=== PATIENT | female | born 1935 | race Caucasian/White ===

== ENCOUNTER 2016-10-16 07:42 | Day surgery (SDC) | payer MEDICARE, BC ==
--- NOTE | 2016-10-15 14:11 | HP ---
DATE OF ADMISSION: 10/15/2016 HISTORY OF PRESENT ILLNESS: This is the first orthopedic outpatient admission for surgery for this 81-year- old female who is being admitted with severe carpal tunnel syndrome of the right wrist. The patient has had failed treatment. Continued numbness, tingling, and pain. Nighttime pain that disturbs sleep. 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 The procedure has been outlined to the patient. She understands and has consented to it. PAST MEDICAL HISTORY: ALLERGIES: Keflex and amoxicillin, she notes she gets GI symptoms. CURRENT MEDICATIONS: Include Crestor, fenofibrate 54 mg, Flexeril, glipizide, hydrocodone 5/325, Lasix 40 mg, latanoprost ophthalmic solution, metformin 500 mg, Prilosec 20 mg, Toprol-XL 25 mg, Vasotec 20 mg. PAST MEDICAL HISTORY: The patient has a history of high blood pressure along with diabetes and increased cholesterol. PAST SURGICAL HISTORY: Positive. She has had previous surgeries with no anesthesia complications. Surgeries include hysterectomy, ovary surgery. The patient has a negative bleeding history, negative blood clot history. SOCIAL HISTORY: She is a nonsmoker and essentially a nondrinker. She states very rarely she might have a glass of wine. PHYSICAL EXAMINATION: GENERAL: Today reveals a well-developed and well-nourished 81-year-old female in mild distress. HEAD, EYES, EARS, NOSE, AND, THROAT: Normocephalic. NECK: Supple. CHEST: Clear. COR: Regular rate. ABDOMEN: Soft. : Intact. MUSCULOSKELETAL: Examination of right wrist reveals a severe Tinel's examination of the right median nerve. Severe thenar atrophy noted. Positive pain or carpal tunnel pressure. Nerve conduction evaluation shows severe carpal tunnel, compressive neuropathy of the median nerve with both motor and sensory function affected. PLAN: To be for the patient undergo right carpal tunnel release. The procedure has been outlined to her. She understands and has consented to that. MMODAL /[id number]
--- NOTE | 2016-10-16 07:08 | PCM.PREANE ---
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, with a stable report given per patient.) Gastrointestinal: No symptoms (History of GERD) Neurological: No Symptoms (History of cerebral hemorhage 2000, with bladder problems noted ever since.), Numbness ( tingling of right hand noted.), Tingling (a bit noted in left hand, primarily noted in left.) Other: Reports: Diabetes, Sinus Problem (allergic rhinitis/recent cold 2 weeks ago.) - Physical Assessment NPO Status Date: 10/15/16 NPO Status Time: 23:30 Pulse: 72 O2 Sat by Pulse Oximetry: 96 Respiratory Rate: 16 Blood Pressure: 139/77 Temperature: 36.9 C Height: 1.52 m Weight: 72.575 kg ASA Class: 2 Mental Status: Alert & Oriented x3 Airway Class: Mallampati = 2 Dentition: Reports: Partial, Missing Tooth/Teeth, Caries (poor dentition) Thyro-Mental Finger Breadths: 3 Mouth Opening Finger Breadths: 3 ROM/Head Extension: Full Lungs: Clear to auscultation, Normal respiratory effort Cardiovascular: Regular Rate, Regular Rhythm - Lab Values: hgb= 12.4 hct=38.3 platelets= 310,000 Na= 137 K= 4.0 Cl= 99 CO2=28 Bun=22 Cr=1.1 - Allergies Allergies/Adverse Reactions: Allergies Allergy/AdvReac Type Severity Reaction Status Date / Time amoxicillin Allergy Other Verified 10/15/16 15:40 cephalexin Allergy Other Verified 10/15/16 15:40 - Anesthesia Plan Pre-Op Medication Ordered: Beta Nancy Beta Nancy: Metoprolol Med Last Dose Date: 10/16/16 Med Last Dose Time: 06:30 - Acknowledgements Anesthesia Type Planned: ROJAS (and MAC) Pt an Appropriate Candidate for the Planned Anesthesia: Yes Alternatives and Risks of Anesthesia Discussed w Pt/Guardian: Yes Pt/Guardian Understands and Agrees with Anesthesia Plan: Yes PreAnesthesia Questionnaire HEENT History: Reports: Glaucoma, Macular degeneration Other HEENT History: glasses Cardiovascular History: Reports: Hypertension Genitourinary History: Reports: Urinary incontinence Neurological History: Reports: Cerebral aneurysms Endocrine/Metabolic History: Reports: Diabetes, type II - Infectious Disease History Infectious Disease History: Reports: Chicken pox, Measles, Scarlet fever - Past Surgical History HEENT Surgical History: Reports: Cataract surgery Other HEENT Surgeries/Procedures: bilateral cataract surgery GI Surgical History: Reports: Cholecystectomy Female Surgical History: Reports: Hysterectomy Endocrine Surgical History: Reports: None Other Musculoskeletal Surgeries/Procedures:: R sided rotator cuff repair - SUBSTANCE USE Smoking Status *Q: Never Smoker - HOME MEDS Home Medications: Home Meds Enalapril [Vasotec] 20 mg PO DAILY 08/07/16 [History] Furosemide [Furosemide] 60 mg PO DAILY 08/07/16 [History] Metoprolol Succinate [Toprol XL] 25 mg PO DAILY 08/07/16 [History] metFORMIN [Glucophage] 750 mg PO BID 08/07/16 [History] Fenofibrate [Fenofibrate] 54 mg PO DAILY 10/15/16 [History] Latanoprost [Latanoprost] 1 drop EYEBOTH BEDTIME 10/15/16 [History] Oxybutynin 5 mg PO DAILY 10/15/16 [History] Rosuvastatin [Crestor] 10 mg PO DAILY 10/15/16 [History] glipiZIDE [Glipizide] 10 mg PO DAILY 10/15/16 [History] - CURRENT (IN HOUSE) MEDS Current Meds: Current Medications Lactated Ringer's (Ringers, Lactated) 1,000 mls @ 125 mls/hr IV ASDIRECTED MAZIN Stop: 10/16/16 23:00 Lidocaine/Sodium Bicarbonate (Buffered Lidocaine 1% In Ns 8.4%) 0.25 ml IV ONETIME PRN PRN Reason: Prior to IV Start Stop: 10/16/16 18:00 Sodium Chloride (Saline Flush) 10 ml FLUSH ASDIRECTED PRN PRN Reason: Keep Vein Open Stop: 10/16/16 18:00
[~2016-10-16 07:42] MED LIST: Clindamycin Phosphate 900 MG in Sodium Chloride 0.9% 100 ML IV ONE; Dexamethasone 4 MG/ML 5 ML MDV ONE; Lactated Ringers 1,000 ML IV SCH; Lidocaine 0.5% 50 ML SDV ONE; Lidocaine 1% 6 ML ONE; Lidocaine 1%/Sod Bicarbonate in NS 8.4% 1 ML Syringe IV PRN; Ondansetron 4 MG/2 ML SDV ONE; Propofol 200 MG/20 ML SDV ONE; Sodium Bicarbonate 8.4% 50 MEQ/50 ML SDV ONE; Sodium Chloride 0.9% 10 ML Syringe FLUSH PRN; fentaNYL 100 MCG/2 ML SDV ONE
[2016-10-16] MEDS ORDERED: Ondansetron 4 MG/2 ML SDV IVPUSH PRN ×2 (09:04→09:26)
[2016-10-16] MEDS ORDERED: Acetaminophen/HYDROcodone 325-5 MG Tab PO PRN (09:04)
--- NOTE | 2016-10-16 09:59 | PCM48HPAN ---
Post Anesthesia Note - EVALUATION WITHIN 48HRS OF ANESTHETIC Vital Signs in Normal Range: Yes Patient Participated in Evaluation: Yes Respiratory Function Stable: Yes Airway Patent: Yes Cardiovascular Function Stable: Yes Hydration Status Stable: Yes Pain Control Satisfactory: Yes Nausea and Vomiting Control Satisfactory: Yes Mental Status Recovered: Yes - COMMENTS/OBSERVATIONS Free Text/Narrative:: Patient awake and expresses satisfaction with current care.
[2016-10-16 10:00] VITALS: BP 102/58
[2016-10-16] MEDS ORDERED: fentaNYL 100 MCG/2 ML SDV IVPUSH PRN (10:30)
[2016-10-16] MEDS ORDERED: HYDROmorphone 0.5 MG/0.5 ML Syringe IVPUSH PRN (10:30)
--- NOTE | 2016-10-16 13:20 | OR ---
DATE OF OPERATION: 10/16/2016 SURGEON: Mikhail De Guzman MD PREOPERATIVE DIAGNOSIS: Severe carpal tunnel syndrome, right wrist. POSTOPERATIVE DIAGNOSIS: Severe carpal tunnel syndrome, right wrist. ANESTHESIA: Sedation with Saad block. OPERATION PERFORMED: Right carpal tunnel ligament release and exploration. DESCRIPTION OF PROCEDURE: The patient was taken to the operating room in supine position. She was placed under a light sedation with Saad block anesthesia to the right upper extremity. After adequate anesthesia, the operation proceeded with prepping and draping of the right hand and arm by standard technique. After prepping and draping, the patient was then positioned for approach to the carpal tunnel from the palmar aspect on the right hand. Once the area of incision was determined, was approximately 1 cm distal to the flexion crease, incision itself was approximately a 1.5 cm and it was parallel to the radial aspect of the ring finger. Once the incision was made, blunt dissection was carried down to the palmar fascia. This was lightly incised exposing the carpal tunnel ligament. Instrumentation was then placed into the wound area to expose the ligament and then by very careful inspection by direct visualization, the ligament was incised into the carpal tunnel area extending proximally and distally taking care not to injure the median nerve. Incision was carried out to the ulnar aspect of the median nerve. Once the incision was made through the visualized approach, carpal ligaments, tendon ligaments, instruments were then inserted. The ligament was then released just proximal to the flexion crease until there was no fibrous pressure on the nerve itself. The distal portion of the ligament was then exposed and released down to the palmar fat pad. Once that was opened up, the carpal tunnel itself could be seen. The nerve was visualized and initially showed the hematoma ecchymosis formation from chronic pressure as a result of a tight carpal tunnel ligament. The vasa vasorum returned quite nicely after light pressure to the nerve itself. The area was then thoroughly irrigated. The operation proceeded with closure of the wound. A horizontal 4-0 Prolene mattress was used and then reinforced with 5-0 Prolene. Standard dressings and splint were applied. The patient tolerated this procedure well. She left the operating room in stable condition to room for recovery. ESTIMATED BLOOD LOSS: MMODAL /[id number]
== END 2016-10-16 10:32 | disposition home or self-care (01) ==
LOC: JD.SDS 07:42
PROVIDERS: ATTEND Specialist
DX: G56.01 Carpal tunnel syndrome, right upper limb (principal); I10 Essential (primary) hypertension; E11.9 Type 2 diabetes mellitus without complications; E78.00 Pure hypercholesterolemia, unspecified; Z90.710 Acquired absence of both cervix and uterus; Z98.890 Other specified postprocedural states; Z88.1 Allergy status to other antibiotic agents; Z88.8 Allergy status to other drugs, medicaments and biological substances; Z79.899 Other long term (current) drug therapy; Z90.49 Acquired absence of other specified parts of digestive tract; Z79.84 Long term (current) use of oral hypoglycemic drugs
CPT/HCPCS: 64721; 82962; J2405; J3010; J7030; J7120; 01810; J1100; J2704

== ENCOUNTER 2017-01-24 07:12 | Day surgery (SDC) | payer MEDICARE, BC ==
[~2017-01-24 07:12] MED LIST changes: -Clindamycin Phosphate 900 MG in Sodium Chloride 0.9% 100 ML IV ONE; -Dexamethasone 4 MG/ML 5 ML MDV ONE; -Lidocaine 0.5% 50 ML SDV ONE; -Lidocaine 1% 6 ML ONE; -Lidocaine 1%/Sod Bicarbonate in NS 8.4% 1 ML Syringe IV PRN; +Lidocaine 1%/Sod Bicarbonate in NS 8.4% 1 ML Syringe PRN; -Ondansetron 4 MG/2 ML SDV ONE; -Propofol 200 MG/20 ML SDV ONE; -Sodium Bicarbonate 8.4% 50 MEQ/50 ML SDV ONE; -fentaNYL 100 MCG/2 ML SDV ONE
[2017-01-24] MEDS ORDERED: Lidocaine 1% 30 ML SDV ONE (07:46)
[2017-01-24] MEDS ORDERED: Bupivacaine 0.25% 30 ML SDV ONE (07:46)
--- NOTE | 2017-01-24 08:50 | PCM.PREANE ---
Preanesthetic Assessment - Anesthesia/Transfusion/Family Hx Anesthesia History: Prior Anesthesia Without Reaction Transfusion History: Prior Transfusion Without Reaction Intubation History: Unknown - Review of Systems General: No Symptoms Pulmonary: No Symptoms (Former smoker quit 1985/LEONARDO- has a CPAP machine but does not use it.) Cardiovascular: No Symptoms (History of HTN) Gastrointestinal: No Symptoms (GERD) Neurological: No Symptoms (history of spinal stenosis, lumbar region, without neurogenic claudication), Headache, Syncope (hemorrhagic stroke 2000 with no deficits noted.), Tingling (right hand finger tingling noted at times.) Other: Reports: Diabetes (am blood sugar at [id number]) - Physical Assessment NPO Status Date: 01/23/17 NPO Status Time: 17:00 Pulse: 72 O2 Sat by Pulse Oximetry: 96 Respiratory Rate: 16 Blood Pressure: 146/66 Temperature: 36.2 C Vital Signs: Last Vital Signs Temp 36.2 C 01/24/17 07:20 Pulse 72 01/24/17 07:20 Resp 16 01/24/17 07:20 BP 146/66 H 01/24/17 07:20 Pulse Ox 96 01/24/17 07:20 Height: 1.52 m Weight: 72.121 kg ASA Class: 2 Mental Status: Alert & Oriented x3 Airway Class: Mallampati = 3 Dentition: Reports: Missing Tooth/Teeth Thyro-Mental Finger Breadths: 3 Mouth Opening Finger Breadths: 3 ROM/Head Extension: Full Lungs: Clear to Auscultation, Normal Respiratory Effort Cardiovascular: Regular Rate, Regular Rhythm, No Murmurs - Lab Values: Laboratory Last Values MRSA (PCR) Negative 01/11/17 09:55 Labs reviewed and noted and within acceptable ranges to proceed with scheduled surgery. GBD=[id number] CR= 22 - Imaging/EKG Impressions: EKG: sinus rhythm rate=64 CXR: no acute abnormalities - Allergies Allergies/Adverse Reactions: Allergies Allergy/AdvReac Type Severity Reaction Status Date / Time cephalexin Allergy Other Verified 01/23/17 15:48 Penicillins Allergy gi upset Verified 01/23/17 15:49 - Anesthesia Plan Pre-Op Medication Ordered: Beta Nancy Beta Nancy: Metoprolol Med Last Dose Date: 01/24/17 Med Last Dose Time: 06:00 - Acknowledgements Anesthesia Type Planned: MAC (LOCAL/MAC) Pt an Appropriate Candidate for the Planned Anesthesia: Yes Alternatives and Risks of Anesthesia Discussed w Pt/Guardian: Yes Pt/Guardian Understands and Agrees with Anesthesia Plan: Yes PreAnesthesia Questionnaire HEENT History: Reports: Glaucoma, Macular Degeneration Other HEENT History: glasses Cardiovascular History: Reports: High Cholesterol, Hypertension Respiratory History: Reports: Sleep Apnea Gastrointestinal History: Reports: GERD, Other (See Below) Other Gastrointestinal History: anal/rectal pain Genitourinary History: Reports: Urinary Incontinence, Other (See Below) Other Genitourinary History: bladder irritablilty 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 Musculoskeletal History: Reports: Osteoarthritis, Other (See Below) Other Musculoskeletal History: spinal stenosis, sacroilliac joint pain Neurological History: Reports: Migraines Psychiatric History: Reports: None Endocrine/Metabolic History: Reports: Diabetes, Type II, Hypothyroidism Hematologic History: Reports: Anemia, B12 Deficiency Immunologic History: Reports: None Oncologic (Cancer) History: Reports: None Dermatologic History: Reports: None - Infectious Disease History Infectious Disease History: Reports: Chicken Pox, Measles, Scarlet Fever - Past Surgical History Head Surgeries/Procedures: Reports: None HEENT Surgical History: Reports: Cataract Surgery Other HEENT Surgeries/Procedures: bilateral cataract surgery GI Surgical History: Reports: Cholecystectomy Female Surgical History: Reports: Hysterectomy Endocrine Surgical History: Reports: None Other Musculoskeletal Surgeries/Procedures:: R sided rotator cuff repair, bilateral hip replacements, closed tibia fracture Dermatological Surgical History: Reports: None - SUBSTANCE USE Smoking Status *Q: Former Smoker Recreational Drug Use History: No - HOME MEDS Home Medications: Home Meds Enalapril [Vasotec] 20 mg PO DAILY 08/07/16 [History] Furosemide [Furosemide] 60 mg PO DAILY 08/07/16 [History] Metoprolol Succinate [Toprol XL] 25 mg PO DAILY 08/07/16 [History] metFORMIN [Glucophage] 750 mg PO BID 08/07/16 [History] Fenofibrate [Fenofibrate] 54 mg PO DAILY 10/15/16 [History] Oxybutynin 5 mg PO DAILY 10/15/16 [History] Rosuvastatin [Crestor] 10 mg PO DAILY 10/15/16 [History] glipiZIDE [Glipizide] 10 mg PO DAILY 10/15/16 [History] Aspirin 81 mg PO DAILY 01/23/17 [History] Cyclobenzaprine [Flexeril] 10 mg PO TID PRN 01/23/17 [History] Hydrocodone/Acetaminophen [[place] 10-325 Tablet] 1 tab PO Q6H PRN 01/23/17 [ History] Omeprazole Magnesium [Prilosec Otc] 20 mg PO DAILY 01/23/17 [History] - CURRENT (IN HOUSE) MEDS Current Meds: Current Medications Lactated Ringer's (Ringers, Lactated) 1,000 mls @ 125 mls/hr IV ASDIRECTED MAZIN Stop: 01/24/17 23:00 Last Admin: 01/24/17 07:45 Dose: 125 mls/hr Lidocaine/Sodium Bicarbonate (Buffered Lidocaine 1% In Ns 8.4%) 0.25 ml .XX ONETIME PRN PRN Reason: Prior to IV Start Stop: 01/24/17 18:00 Last Admin: 01/24/17 07:44 Dose: 0.25 ml Sodium Chloride (Saline Flush) 10 ml FLUSH ASDIRECTED PRN PRN Reason: Keep Vein Open Stop: 01/24/17 18:00 Discontinued Medications Bupivacaine HCl (Marcaine 0.25%) Confirm Administered Dose 30 ml .ROUTE .STK- MED ONE Stop: 01/24/17 07:47 Lidocaine HCl (Xylocaine-Mpf 1%) Confirm Administered Dose 30 ml .ROUTE .STK- MED ONE Stop: 01/24/17 07:47
[2017-01-24] MEDS ORDERED: Alfentanil 500 MCG/ML 2ML Amp ONE (09:11)
[2017-01-24] MEDS ORDERED: Propofol 200 MG/20 ML SDV ONE (09:32)
[2017-01-24] MEDS ORDERED: ceFAZolin 1 GM Vial ONE (10:09)
--- NOTE | 2017-01-24 10:25 | PCM48HPAN ---
Post Anesthesia Note - EVALUATION WITHIN 48HRS OF ANESTHETIC Vital Signs in Normal Range: Yes Patient Participated in Evaluation: Yes Respiratory Function Stable: Yes Airway Patent: Yes Cardiovascular Function Stable: Yes Hydration Status Stable: Yes Pain Control Satisfactory: Yes Nausea and Vomiting Control Satisfactory: Yes Mental Status Recovered: Yes
[2017-01-24 11:19] VITALS: BP 149/76
--- NOTE | 2017-01-24 22:32 | PCM.OPNOTE ---
- General Post-Op/Procedure Note Date of Surgery/Procedure: 01/24/17 Operative Procedure(s): left carpal tunnel release Pre Op Diagnosis: left median nerve compression neuropathy Post-Op Diagnosis: Same Anesthesia Technique: Local, MAC Primary Surgeon: Vito Erickson Anesthesia Provider: Hank Cody EBL in mLs: 5 Complications: None Condition: Good
--- NOTE | 2017-01-24 23:03 | OR ---
DATE OF OPERATION: 01/24/2017 SURGEON: Vito Erickson MD OPERATION PERFORMED: Left carpal tunnel release. PREOPERATIVE DIAGNOSIS: Left median nerve compression neuropathy. POSTOPERATIVE DIAGNOSIS: Left median nerve compression neuropathy. ANESTHESIA: Local MAC. ANESTHESIA PROVIDER: Hank Cody MD. ESTIMATED BLOOD LOSS: Less than 5 mL. COMPLICATIONS: None. CONDITION: Stable. DESCRIPTION OF PROCEDURE: The patient was identified in the preop holding area. Proper site was marked and identified by the surgeon. The patient was taken back to the OR after adequate anesthesia the patient's left upper extremity sterilely prepped and draped in usual sterile fashion. OR time-out was performed. The patient received 2 g of IV Ancef. At this time, left upper extremity had an Esmarch placed on the forearm as a tourniquet. 1% lidocaine without epinephrine and 0.25% Marcaine without epinephrine were then used for anesthetization of palmar cutaneous branch of the median nerve and incisional area using Lopez cardinal line and ulnar border of fourth digit. At this time, incision was made. Blunt dissection was taken down to the palmar cutaneous fascia. Palmar cutaneous fascia was then incised with [place] blade. Transverse carpal ligament was then identified. Small rent was made in the transverse carpal ligament. A [place] elevator was placed below the transverse carpal ligament that was released all the way distally to make sure to stop just short of palmar fat. At this time, it was found to be released all the way distally. Attention was turned proximally with use of tenotomy scissors. Forearm fascia and the transverse carpal ligament were resected proximally making sure to keep the tips ulnar to protect the palmar cutaneous branch of the median nerve. At this time, it was found to be adequately released both proximally and distally. Adequate saline was irrigated through the wound. 4-0 nylon horizontal mattress suture was used for closure of the skin. The patient tolerated the procedure well and sent to PACU in stable condition. MMODAL /[id number]
== END 2017-01-24 11:18 | disposition home or self-care (01) ==
LOC: JD.SDS 07:12
PROVIDERS: ATTEND Orthopaedic Surgery
PROC: 01N50ZZ Release Median Nerve, Open Approach (ICD-10-PCS; principal; 2017-01-24)
DX: G56.02 Carpal tunnel syndrome, left upper limb (principal); I10 Essential (primary) hypertension; E11.69 Type 2 diabetes mellitus with other specified complication; R80.9 Proteinuria, unspecified; K21.9 Gastro-esophageal reflux disease without esophagitis; E78.2 Mixed hyperlipidemia; E55.9 Vitamin D deficiency, unspecified; M48.06 Spinal stenosis, lumbar region; M19.90 Unspecified osteoarthritis, unspecified site; D51.3 Other dietary vitamin B12 deficiency anemia; G47.33 Obstructive sleep apnea (adult) (pediatric); Z87.891 Personal history of nicotine dependence; Z79.82 Long term (current) use of aspirin; Z79.84 Long term (current) use of oral hypoglycemic drugs; Z79.899 Other long term (current) drug therapy; Z88.0 Allergy status to penicillin; Z88.1 Allergy status to other antibiotic agents; Z96.643 Presence of artificial hip joint, bilateral; Z98.41 Cataract extraction status, right eye; Z98.42 Cataract extraction status, left eye; Z90.49 Acquired absence of other specified parts of digestive tract; Z90.710 Acquired absence of both cervix and uterus; Z98.890 Other specified postprocedural states; Z99.89 Dependence on other enabling machines and devices
CPT/HCPCS: 64721; 87641; J0690; J7120; 01830; J2704; J3490

== ENCOUNTER 2017-08-16 13:56 | Emergency (ER) | payer MEDICARE, BC ==
[2017-08-16 14:33] VITALS: BP 128/52
[2017-08-16] MEDS ORDERED: Sodium Chloride 0.9% 10 ML Syringe FLUSH PRN (14:59)
--- NOTE | 2017-08-16 15:17 | CT ---
Head CT Technique: Multiple axial sections through the brain were obtained. Intravenous contrast was not utilized. Comparison: Previous MRI brain dated 08/05/14. Findings: Ventricles along with basal cisterns and sulci over the convexities are moderately prominent. Mild areas of diminished density are noted within the basal ganglia which are compatible with old lacunar infarcts. Minimal decreased density is identified within the periventricular white matter compatible with small vessel ischemic demyelination change. No other abnormal parenchymal densities are seen. No evidence of intracranial hemorrhage. No midline shift or mass effect is seen. Bone window settings were reviewed which shows no discrete calvarial abnormality. Visualized sinuses show no acute sinus findings. Impression: 1. Senescent change as noted above. 2. Nothing acute is appreciated on noncontrast head CT exam. Diagnostic code #2
[2017-08-16] MEDS ORDERED: Ketorolac 30 MG/ML SDV IVPUSH ONE (15:45)
--- NOTE | 2017-08-16 15:59 | CR ---
Chest: Portable view of the chest was obtained. Comparison: No prior chest x-ray. Heart size and mediastinum are normal. Minimal atelectasis within the lateral left costophrenic angle is seen. Lungs otherwise are clear. Fairly prominent degenerative change is noted within both shoulders. Impression: 1. Incidental findings. Nothing acute is seen on portable chest x-ray. Diagnostic code #2
--- NOTE | 2017-08-16 17:02 | EDM.PDOC ---
ED HPI GENERAL MEDICAL PROBLEM - General Chief Complaint: Headache Stated Complaint: HEADACHE Time Seen by Provider: 08/16/17 14:52 Source of Information: Reports: Patient History Limitations: Reports: No Limitations - History of Present Illness INITIAL COMMENTS - FREE TEXT/NARRATIVE: The patient presents with a headache to the top of her head. This started abut 2 weeks ago. It comes and goes. She still has one now. She has no head injury. She does have a history of headaches but this one feels worse. It feels like when she had a head bleed about 12 years ago. She has no fever, chills, vision troubles, numbness or weakness. She did have some chest pain a few days ago. It is gone now. She has no abdominal pain, nausea or vomiting. Onset: Gradual Duration: Week(s): (2) Location: Reports: Head Quality: Reports: Ache Severity: Moderate Improves with: Reports: None Worsens with: Reports: None Associated Symptoms: Reports: Chest Pain, Headaches. Denies: Fever/Chills, Nausea/Vomiting, Shortness of Breath Headache Pain Score (Numeric/FACES): 10 - Related Data Allergies Allergy/AdvReac Type Severity Reaction Status Date / Time cephalexin Allergy Other Verified 08/16/17 14:33 Penicillins AdvReac gi upset Verified 08/16/17 14:33 Home Meds: Home Meds Enalapril [Vasotec] 20 mg PO DAILY 08/07/16 [History] Furosemide 60 mg PO DAILY 08/07/16 [History] Metoprolol Succinate [Toprol XL] 25 mg PO DAILY 08/07/16 [History] metFORMIN [Glucophage] 750 mg PO BID 08/07/16 [History] Fenofibrate 54 mg PO DAILY 10/15/16 [History] Oxybutynin 5 mg PO DAILY 10/15/16 [History] glipiZIDE [Glipizide] 5 mg PO BID 10/15/16 [History] Aspirin 81 mg PO DAILY 01/23/17 [History] Cyclobenzaprine [Flexeril] 10 mg PO TID PRN 01/23/17 [History] Hydrocodone/Acetaminophen [[place] 10-325 Tablet] 1 tab PO Q6H PRN 01/23/17 [ History] Omeprazole Magnesium [Prilosec Otc] 20 mg PO DAILY 01/23/17 [History] Hydrocodone/Acetaminophen [Hydrocodon-Acetaminophen 5-325] 1 - 2 each PO Q6HR PRN #20 tablet 08/16/17 [Rx] Simvastatin [Zocor] 80 mg PO DAILY 08/16/17 [History] Past Medical History HEENT History: Reports: Glaucoma, Macular Degeneration Other HEENT History: glasses Cardiovascular History: Reports: High Cholesterol, Hypertension Respiratory History: Reports: Sleep Apnea Gastrointestinal History: Reports: GERD, Other (See Below) Other Gastrointestinal History: anal/rectal pain Genitourinary History: Reports: Urinary Incontinence, Other (See Below) Other Genitourinary History: bladder irritablilty INDUSTRIAL RELATIONS REPRESENTATIVE History: Reports: None Musculoskeletal History: Reports: Osteoarthritis, Other (See Below) Other Musculoskeletal History: spinal stenosis, sacroilliac joint pain Neurological History: Reports: Migraines Psychiatric History: Reports: None Endocrine/Metabolic History: Reports: Diabetes, Type II, Hypothyroidism Hematologic History: Reports: Anemia, B12 Deficiency Immunologic History: Reports: None Oncologic (Cancer) History: Reports: None Dermatologic History: Reports: None - Infectious Disease History Infectious Disease History: Reports: Chicken Pox, Measles, Scarlet Fever - Past Surgical History Head Surgeries/Procedures: Reports: None HEENT Surgical History: Reports: Cataract Surgery Other HEENT Surgeries/Procedures: bilateral cataract surgery GI Surgical History: Reports: Cholecystectomy Female Surgical History: Reports: Hysterectomy Endocrine Surgical History: Reports: None Other Musculoskeletal Surgeries/Procedures:: R sided rotator cuff repair, bilateral hip replacements, closed tibia fracture Dermatological Surgical History: Reports: None Social & Family History - Tobacco Use Smoking Status *Q: Never Smoker Month Tobacco Last Used: 1993 Second Hand Smoke Exposure: No - Caffeine Use Caffeine Use: Reports: Coffee - Recreational Drug Use Recreational Drug Use: No ED ROS GENERAL - Review of Systems Review Of Systems: See Below Constitutional: Reports: No Symptoms HEENT: Reports: No Symptoms Respiratory: Reports: No Symptoms Cardiovascular: Reports: Chest Pain Endocrine: Reports: No Symptoms GI/Abdominal: Reports: No Symptoms : Reports: No Symptoms Musculoskeletal: Reports: No Symptoms Skin: Reports: No Symptoms Neurological: Reports: Headache - Physical Exam Exam: See Below Exam Limited By: No Limitations General Appearance: Alert, No Apparent Distress Ears: Normal External Exam Nose: Normal Inspection Head Exam: Atraumatic, Normocephalic Neck: Normal Inspection Respiratory/Chest: No Respiratory Distress, Lungs Clear, Normal Breath Sounds Cardiovascular: Regular Rate, Rhythm, No Edema, No Murmur GI/Abdominal: Soft, Non-Tender, No Organomegaly, No Mass Neuro Exam (Abbreviated): Alert, Oriented, No Motor/Sensory Deficits EKG INTERPRETATION EKG Date: 08/16/17 Time: 15:42 Rhythm: NSR Rate (Beats/Min): 74 [place]: Normal P-Wave: Present QRS: Normal ST-T: Normal QT: Normal Course - Vital Signs Last Recorded V/S: Last Vital Signs Temp 98.4 F 08/16/17 14:28 Pulse 78 08/16/17 14:28 Resp 13 08/16/17 14:28 BP 128/52 L 08/16/17 14:28 Pulse Ox 97 08/16/17 14:28 - Orders/Labs/Meds Orders: Active Orders 24 hr Category Date Time Status Cardiac Monitoring [RC] . DIRECTED Care 08/16/17 14:59 Active EKG Documentation Completion [RC] STAT Care 08/16/17 14:59 Active Peripheral IV Care [RC] . DIRECTED Care 08/16/17 14:59 Active Sodium Chloride 0.9% [Saline Flush] Med 08/16/17 14:59 Active 10 ml FLUSH ASDIRECTED PRN Peripheral IV Insertion Adult [OM.PC] Stat Oth 08/16/17 14:59 Ordered Medication Orders Sodium Chloride (Saline Flush) 10 ml FLUSH ASDIRECTED PRN PRN Reason: Keep Vein Open Last Admin: 08/16/17 16:10 Dose: 10 ml Labs: Laboratory Tests 08/16/17 08/16/17 Range/Units 15:10 15:10 WBC 7.38 (3.98-10.04) K/mm3 RBC 4.01 (3.98-5.22) M/mm3 Hgb 11.1 L (11.2-15.7) gm/L Hct 34.9 (34.1-44.9) % MCV 87.0 (79.4-94.8) fl MCH 27.7 (25.6-32.2) pg MCHC 31.8 L (32.2-35.5) g/dl RDW Std Deviation 43.7 (36.4-46.3) fL Plt Count 307 (182-369) K/mm3 MPV 10.4 (9.4-12.3) fl Neut % (Auto) 49.2 (34.0-71.1) % Lymph % (Auto) 39.3 (19.3-51.7) % [place] % (Auto) 8.9 (4.7-12.5) % Eos % (Auto) 2.2 (0.7-5.8) Baso % (Auto) 0.1 (0.1-1.2) % Neut # (Auto) 3.63 (1.56-6.13) K/mm3 Lymph # (Auto) 2.90 (1.18-3.74) K/mm3 [place] # (Auto) 0.66 H (0.24-0.36) K/mm3 Eos # (Auto) 0.16 (0.04-0.36) K/mm3 Baso # (Auto) 0.01 (0.01-0.08) K/mm3 Sodium 141 (136-145) mEq/L Potassium 3.6 (3.5-5.1) mEq/L Chloride 103 (98-107) mEq/L Carbon Dioxide 31 (21-32) mEq/L Anion Gap 10.6 (5-15) BUN 27 H (7-18) mg/dL Creatinine 1.4 H (0.55-1.02) mg/dL Est Cr Clr Drug Dosing 23.40 mL/min Estimated GFR (MDRD) 36 (>60) mL/min BUN/Creatinine Ratio 19.3 H (14-18) Glucose 152 H (83-115) mg/dL Calcium 9.3 (8.5-10.1) mg/dL Total Bilirubin 0.3 (0.2-1.0) mg/dL AST 11 L (15-37) U/L ALT 16 (14-59) U/L Alkaline Phosphatase 49 (46-116) U/L Troponin I < 0.017 (0.00-0.056) ng/mL Total Protein 7.2 (6.4-8.2) g/dl Albumin 3.6 (3.4-5.0) g/dl Globulin 3.6 gm/dL Albumin/Globulin Ratio 1.0 (1-2) Meds: Medications Generic Name Dose Route Start Last Admin Trade Name Freq PRN Reason Stop Dose Admin Sodium Chloride 10 ml 08/16/17 14:59 08/16/17 16:10 Saline Flush FLUSH 10 ml ASDIRECTED PRN Administration Keep Vein Open Discontinued Medications Generic Name Dose Route Start Last Admin Trade Name Perla PRN Reason Stop Dose Admin Ketorolac Tromethamine 30 mg 08/16/17 15:45 08/16/17 16:05 Toradol IVPUSH 08/16/17 15:46 30 mg ONETIME ONE Administration - Re-Assessments/Exams Free Text/Narrative Re-Assessment/Exam: 08/16/17 19:44 I ordered an IV saline lock, CT of her head, EKG, CXR, and labs. Her CT looks good. Her EKG shows a NSR with no acute changes. Her labs look good. She had a normal troponin. I ordered some toradol 30mg IV. I have ordered an outpatient MRI and MRA of her brain. Departure - Departure Time of Disposition: 17:00 Disposition: Home, Self-Care 01 Condition: Good Clinical Impression: Headache Qualifiers: Headache type: unspecified Headache chronicity pattern: acute headache Intractability: not intractable Qualified Code(s): R51 - Headache - Discharge Information Prescriptions: Hydrocodone/Acetaminophen [Hydrocodon-Acetaminophen 5-325] 1 - 2 each PO Q6HR PRN #20 tablet PRN Reason: Pain Instructions: General Headache Without Cause Referrals: Garfield Butler MD [Primary Care Provider] - 1 Week Forms: ED Department Discharge Additional Instructions: Take the hydrocodone 1 to 2 pills every 6 hours as needed for pain. I have ordered an MRI of your brain. They will call you with a time. Please return if you are worse. - My Orders Last 24 Hours: My Active Orders 08/16/17 14:59 Cardiac Monitoring [RC] . DIRECTED EKG Documentation Completion [RC] STAT Peripheral IV Care [RC] . DIRECTED Sodium Chloride 0.9% [Saline Flush] 10 ml FLUSH ASDIRECTED PRN Peripheral IV Insertion Adult [OM.PC] Stat - Assessment/Plan Last 24 Hours: My Active Orders 08/16/17 14:59 Cardiac Monitoring [RC] . DIRECTED EKG Documentation Completion [RC] STAT Peripheral IV Care [RC] . DIRECTED Sodium Chloride 0.9% [Saline Flush] 10 ml FLUSH ASDIRECTED PRN Peripheral IV Insertion Adult [OM.PC] Stat
== END 2017-08-16 17:15 | disposition home or self-care (01) ==
LOC: JD.ED 13:56
DX: R51 Headache (principal); I10 Essential (primary) hypertension; E78.00 Pure hypercholesterolemia, unspecified; K21.9 Gastro-esophageal reflux disease without esophagitis; E11.9 Type 2 diabetes mellitus without complications; E03.9 Hypothyroidism, unspecified; Z79.84 Long term (current) use of oral hypoglycemic drugs; Z79.82 Long term (current) use of aspirin; Z79.899 Other long term (current) drug therapy; Z88.1 Allergy status to other antibiotic agents; Z88.0 Allergy status to penicillin
CPT/HCPCS: 36415; 70450; 71045; 80053; 84484; 85025; 93005; 96374; 99285; J1885; J7050; 93010; 99284-25

== ENCOUNTER 2019-04-27 07:19 | Emergency (ER) | payer MEDICARE, BC ==
[2019-04-27] MEDS ORDERED: Sodium Chloride 0.9% 10 ML Syringe FLUSH PRN (07:23)
--- NOTE | 2019-04-27 07:46 | EDM.PDOC ---
ED HPI GENERAL MEDICAL PROBLEM - General Chief Complaint: Neuro Symptoms/Deficits Stated Complaint: [facility] Time Seen by Provider: 04/27/19 07:23 Source of Information: Reports: EMS, Family History Limitations: Reports: Altered Mental Status - History of Present Illness INITIAL COMMENTS - FREE TEXT/NARRATIVE: The patient presents by [facility] for a possible stroke. Her last time known well was early this morning at 1am when she went to bed. She was talking at that time and moving. This morning just prior to arrival her says she will not talk and she would not get out of bed. She is alert but will not talk or follow commands. Her says for about 3 weeks she has been having back pain. She saw Dr Butler and Dr Mcduffie and another doctor. She is scheduled to have a colonoscopy today with Dr Matamoros. She was put on baclofen on for her back. Her says since she has not been acting right. She has been weak and a little confused and off balance at times. She has no temp here. She has no cough, congestion, runny nose, vomiting or diarrhea. That is according to her . She had a head bleed 12 years ago. She had a full physical done last week. Onset: Gradual Duration: Hour(s): (last time known well was 1am) Severity: Moderate Improves with: Reports: None Worsens with: Reports: None Associated Symptoms: Reports: No Other Symptoms - Related Data Allergies Allergy/AdvReac Type Severity Reaction Status Date / Time cephalexin Allergy Other Verified 04/27/19 08:27 Penicillins AdvReac gi upset Verified 04/27/19 08:27 Home Meds: Home Meds Enalapril [Vasotec] 20 mg PO DAILY 08/07/16 [History] Furosemide 60 mg PO DAILY 08/07/16 [History] Metoprolol Succinate [Toprol XL] 25 mg PO DAILY 08/07/16 [History] metFORMIN [Glucophage] 500 mg PO BID 08/07/16 [History] Fenofibrate 54 mg PO DAILY 10/15/16 [History] Oxybutynin 5 mg PO DAILY 10/15/16 [History] glipiZIDE [Glipizide] 10 mg PO ACBREAKFAST 10/15/16 [History] Aspirin 81 mg PO DAILY 01/23/17 [History] Omeprazole Magnesium [Prilosec Otc] 20 mg PO DAILY 01/23/17 [History] Latanoprost/Pf [Latanoprost 0.005% Eye Drop] 1 drop EYEBOTH BEDTIME 04/27/19 [ History] Multivit-Min/FA/Lycopene/Lut [Certavite Sr-Antioxidant Tab] 1 tab PO DAILY 04/27 [History] Polyethylene Glycol [Polyox Wsr-301] 1 packet PO DAILY 04/27/19 [History] Rosuvastatin Calcium 20 mg PO DAILY 04/27/19 [History] Past Medical History HEENT History: Reports: Glaucoma, Macular Degeneration Other HEENT History: glasses Cardiovascular History: Reports: High Cholesterol, Hypertension Respiratory History: Reports: Sleep Apnea Gastrointestinal History: Reports: GERD, Other (See Below) Other Gastrointestinal History: anal/rectal pain Genitourinary History: Reports: Urinary Incontinence, Other (See Below) Other Genitourinary History: bladder irritablilty 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 Musculoskeletal History: Reports: Osteoarthritis, Other (See Below) Other Musculoskeletal History: spinal stenosis, sacroilliac joint pain Neurological History: Reports: Migraines Psychiatric History: Reports: None Endocrine/Metabolic History: Reports: Diabetes, Type II, Hypothyroidism Hematologic History: Reports: Anemia, B12 Deficiency Immunologic History: Reports: None Oncologic (Cancer) History: Reports: None Dermatologic History: Reports: None - Infectious Disease History Infectious Disease History: Reports: Chicken Pox, Measles, Scarlet Fever - Past Surgical History Head Surgeries/Procedures: Reports: None HEENT Surgical History: Reports: Cataract Surgery Other HEENT Surgeries/Procedures: bilateral cataract surgery GI Surgical History: Reports: Cholecystectomy Female Surgical History: Reports: Hysterectomy Endocrine Surgical History: Reports: None Other Musculoskeletal Surgeries/Procedures:: R sided rotator cuff repair, bilateral hip replacements, closed tibia fracture Dermatological Surgical History: Reports: None Social & Family History - Caffeine Use Caffeine Use: Reports: Coffee ED ROS GENERAL - Review of Systems Review Of Systems: Unable To Obtain ED EXAM, NEURO - Physical Exam Exam: See Below Exam Limited By: Altered Mental Status General Appearance: Alert, Other (Will not talk. She does follow some commands) Ears: Normal External Exam Nose: Normal Inspection Head Exam: Atraumatic, Normocephalic Neck: Normal Inspection Respiratory/Chest: No Respiratory Distress, Lungs Clear, Normal Breath Sounds Cardiovascular: Regular Rate, Rhythm, No Edema, No Murmur GI/Abdominal: Soft, Non-Tender, No Organomegaly, No Mass Neurological: Alert, Other (She will follow some commands. She lifted her arms up on command and pushed with her feet. She had left arm and leg weakness. There was no sided weakness.) EKG INTERPRETATION EKG Date: 04/27/19 Time: 07:39 Rhythm: NSR Rate (Beats/Min): 79 [place]: Normal P-Wave: Present QRS: Normal ST-T: Normal QT: Normal Course - Vital Signs Last Recorded V/S: Last Vital Signs Temp 96.7 F 04/27/19 07:20 Pulse 80 04/27/19 07:20 Resp 20 04/27/19 07:20 BP 160/121 H 04/27/19 07:20 Pulse Ox 99 04/27/19 07:20 - Orders/Labs/Meds Orders: Active Orders 24 hr Category Date Time Status Cardiac Monitoring [RC] . DIRECTED Care 04/27/19 07:23 Active EKG Documentation Completion [RC] STAT Care 04/27/19 07:24 Active Insert [place]o Catheter [Insert Urinary Catheter] [OM.PC] Care 04/27/19 10:15 Ordered Q24H Oxygen Therapy [RC] PRN Care 04/27/19 07:23 Active Peripheral IV Care [RC] . DIRECTED Care 04/27/19 07:23 Active Urinary Catheter Assessment [RC] ASDIRECTED Care 04/27/19 10:15 Active UA W/MICROSCOPIC [URIN] Stat Lab 04/27/19 10:15 Ordered Sodium Chloride 0.9% [Saline Flush] Med 04/27/19 07:23 Active 10 ml FLUSH ASDIRECTED PRN Peripheral IV Insertion Adult [OM.PC] Stat Oth 04/27/19 07:23 Ordered Medication Orders Sodium Chloride (Saline Flush) 10 ml FLUSH ASDIRECTED PRN PRN Reason: Keep Vein Open Last Admin: 04/27/19 07:28 Dose: 10 ml Labs: Laboratory Tests 04/27/19 04/27/19 04/27/19 Range/Units 07:23 07:45 07:45 WBC 8.32 (3.98-10.04) K/mm3 RBC 4.15 (3.98-5.22) M/mm3 Hgb 11.4 (11.2-15.7) gm/dl Hct 34.9 (34.1-44.9) % MCV 84.1 (79.4-94.8) fl MCH 27.5 (25.6-32.2) pg MCHC 32.7 (32.2-35.5) g/dl RDW Std Deviation 44.3 (36.4-46.3) fL Plt Count 334 (182-369) K/mm3 MPV 10.2 (9.4-12.3) fl Neut % (Auto) 61.0 (34.0-71.1) % Lymph % (Auto) 27.6 (19.3-51.7) % [place] % (Auto) 10.6 (4.7-12.5) % Eos % (Auto) 0.6 L (0.7-5.8) Baso % (Auto) 0.1 (0.1-1.2) % Neut # (Auto) 5.07 (1.56-6.13) K/mm3 Lymph # (Auto) 2.30 (1.18-3.74) K/mm3 [place] # (Auto) 0.88 H (0.24-0.36) K/mm3 Eos # (Auto) 0.05 (0.04-0.36) K/mm3 Baso # (Auto) 0.01 (0.01-0.08) K/mm3 Sodium 143 (136-145) mEq/L Potassium 3.5 (3.5-5.1) mEq/L Chloride 104 (98-107) mEq/L Carbon Dioxide 25 (21-32) mEq/L Anion Gap 17.5 H (5-15) BUN 41 H (7-18) mg/dL Creatinine 2.1 H (0.55-1.02) mg/dL Est Cr Clr Drug Dosing 18.14 mL/min Estimated GFR (MDRD) 23 (>60) mL/min BUN/Creatinine Ratio 19.5 H (14-18) Glucose 145 H (83-115) mg/dL POC Glucose 136 H (83-110) mg/dL Calcium 9.2 (8.5-10.1) mg/dL Magnesium 1.7 L (1.8-2.4) mg/dl Total Bilirubin 0.3 (0.2-1.0) mg/dL AST 33 (15-37) U/L ALT 25 (14-59) U/L Alkaline Phosphatase 73 (46-116) U/L Troponin I < 0.017 (0.00-0.056) ng/mL Total Protein 7.5 (6.4-8.2) g/dl Albumin 3.8 (3.4-5.0) g/dl Globulin 3.7 gm/dL Albumin/Globulin Ratio 1.0 (1-2) Meds: Medications Generic Name Dose Route Start Last Admin Trade Name Freq PRN Reason Stop Dose Admin Sodium Chloride 10 ml 04/27/19 07:23 04/27/19 07:28 Saline Flush FLUSH 10 ml ASDIRECTED PRN Administration Keep Vein Open Discontinued Medications Generic Name Dose Route Start Last Admin Trade Name Freq PRN Reason Stop Dose Admin Aspirin 324 mg 04/27/19 10:13 Aspirin PO 04/27/19 10:14 ONETIME ONE - Re-Assessments/Exams Free Text/Narrative Re-Assessment/Exam: 04/27/19 07:51 I ordered an IV saline lock, CT of her head, EKG, labs and UA. Her EKG shows a NSR with no acute changes. Her CT shows multiple small hypodensities at the basal ganglia consistent with remote lacunar infarctions. Bifrontal atrophy. There is an expected degree of age-related atrophy and chronic white matter ischemic changes. No acute intra-axial hemorrhage appreciated. 04/27/19 10:02 The MRI of her brain shows senescent change. Equivocal small area of abnormal diffusion within the cortex of the right posterior temporal region. This is difficult area to evaluate due to artifact. Small acute infarct is a possibility. No other acute diffusion abnormalities are seen. 04/27/19 10:07 Her CBC looks good. Her anion gap is elevated at 17.5. Her creatinine is elevated at 2.1. Her baseline in the past was 1.5. Her glucose was 145. Her troponin is negative. She can speak some words now. She is slurring her words and her words do not make sense in the context. She still has weakness to her left arm and leg. My nurse will redo a stroke scale on her. I feel she needs to go to [facility] [place]. I called there and talked with the neurologist Dr Nash and he wanted me to give aspirin and I will also talk with the hospitalist Dr Lundberg. 04/27/19 10:33 My nurse says her stroke scale has not changed. Departure - Departure Time of Disposition: 10:35 Disposition: DC/Tfer to Acute Hospital 02 Condition: Serious Clinical Impression: Renal insufficiency CVA (cerebral vascular accident) Qualifiers: CVA mechanism: unspecified Qualified Code(s): I63.9 - Cerebral infarction, unspecified - Discharge Information Referrals: Garfield Butler MD [Primary Care Provider] - Forms: ED Department Discharge - My Orders Last 24 Hours: My Active Orders 04/27/19 07:23 Cardiac Monitoring [RC] . DIRECTED Oxygen Therapy [RC] PRN Peripheral IV Care [RC] . DIRECTED Sodium Chloride 0.9% [Saline Flush] 10 ml FLUSH ASDIRECTED PRN Peripheral IV Insertion Adult [OM.PC] Stat 04/27/19 07:24 EKG Documentation Completion [RC] STAT 04/27/19 10:15 Insert Brito Catheter [Insert Urinary Catheter] [OM.PC] Q24H Urinary Catheter Assessment [RC] ASDIRECTED UA W/MICROSCOPIC [URIN] Stat - Assessment/Plan Last 24 Hours: My Active Orders 04/27/19 07:23 Cardiac Monitoring [RC] . DIRECTED Oxygen Therapy [RC] PRN Peripheral IV Care [RC] . DIRECTED Sodium Chloride 0.9% [Saline Flush] 10 ml FLUSH ASDIRECTED PRN Peripheral IV Insertion Adult [OM.PC] Stat 04/27/19 07:24 EKG Documentation Completion [RC] STAT 04/27/19 10:15 Insert Brito Catheter [Insert Urinary Catheter] [OM.PC] Q24H Urinary Catheter Assessment [RC] ASDIRECTED UA W/MICROSCOPIC [URIN] Stat
--- NOTE | 2019-04-27 08:40 | CT ---
Head CT Technique: Multiple axial sections through the brain were obtained. Intravenous contrast was not utilized. Comparison: Prior head CT study of 08/16/17. Findings: Ventricles along with basal cisterns and sulci over the convexities are moderately prominent. Several old lacunar infarcts are noted within the basal ganglia. Diminished density is noted within the periventricular white matter which is most likely due to small vessel ischemic demyelination change. No other abnormal parenchymal densities are seen. No evidence of intracranial hemorrhage. No midline shift or mass effect is seen. Atherosclerotic calcification is seen within the carotid siphon. Bone window settings were reviewed which showed visualized paranasal sinuses to be clear. Mastoid sinuses are clear. No acute calvarial abnormality is appreciated. Impression: 1. Senescent change as noted above. 2. Nothing acute is appreciated on noncontrast head CT exam. 3. No significant change is appreciated from prior head CT exam. Diagnostic code #2
--- NOTE | 2019-04-27 09:48 | MR ---
MRI brain Technique: T1 sagittal; T2, T2 FLAIR, T1 and diffusion axial; T1 and T2 gradient echo coronal; T2 gradient echo axial images were also obtained. Comparison: Prior head CT study performed earlier on the same day (7:25 AM). Findings: Normal signal void is seen within the major cerebral arteries within the skull base. Ventricles along with basal cisterns and sulci over the convexities are moderately prominent. Areas of increased signal are seen within the periventricular and subcortical white matter which is compatible with small vessel ischemic demyelination change. Questionable acute diffusion abnormality is seen next to some artifact within the posterior right temporal region. Difficult to exclude small posterior temporal lobe acute infarct. No other diffusion abnormalities are seen. Impression: 1. Senescent change. 2. Equivocal small area of abnormal diffusion within the cortex of the right posterior temporal region. This is a difficult area to evaluate due to artifact. Small acute infarct is a possibility. 3. No other acute diffusion abnormalities are seen. Diagnostic code #3
[2019-04-27] MEDS ORDERED: Aspirin 81 MG Tab.Chew PO ONE (10:13)
[2019-04-27 12:02] VITALS: BP 167/68; PULSE 90
== END 2019-04-27 10:57 ==
LOC: JD.ED 07:19 → SUPCPDRO 07:19 → JD.ED 10:57
DX: I63.9 Cerebral infarction, unspecified (principal); N28.9 Disorder of kidney and ureter, unspecified; I10 Essential (primary) hypertension; E78.00 Pure hypercholesterolemia, unspecified; K21.9 Gastro-esophageal reflux disease without esophagitis; E11.9 Type 2 diabetes mellitus without complications; Z88.1 Allergy status to other antibiotic agents; Z88.0 Allergy status to penicillin; Z79.82 Long term (current) use of aspirin; Z79.84 Long term (current) use of oral hypoglycemic drugs; Z79.899 Other long term (current) drug therapy
CPT/HCPCS: 36415; 51701; 70450; 70551; 80053; 81001; 82962; 83735; 84484; 85025; 93005; 99285; A9270; 93010

== ENCOUNTER 2019-09-23 06:49 | Day surgery (SDC) | payer MEDICARE, BC ==
[~2019-09-23 06:49] MED LIST changes: +Lidocaine 1%/Sod Bicarbonate in NS 8.4% 1 ML Syringe IDERM PRN; -Lidocaine 1%/Sod Bicarbonate in NS 8.4% 1 ML Syringe PRN
[2019-09-23] MEDS ORDERED: Lidocaine 1%/Sod Bicarbonate in NS 8.4% 1 ML Syringe IDERM PRN (07:00)
[2019-09-23] MEDS ORDERED: Sodium Chloride 0.9% 10 ML Syringe FLUSH PRN (07:00)
[2019-09-23] MEDS ORDERED: Lactated Ringers 1,000 ML IV SCH (07:00)
[2019-09-23] MEDS ORDERED: Propofol 200 MG/20 ML SDV ONE (07:20)
[2019-09-23] MEDS ORDERED: Lidocaine 1% 2 ML ONE (07:21)
--- NOTE | 2019-09-23 07:48 | PCM.PREANE ---
Preanesthetic Assessment - Anesthesia/Transfusion/Family Hx Anesthesia History: Prior Anesthesia Without Reaction Family History of Anesthesia Reaction: No Transfusion History: Prior Transfusion Without Reaction Intubation History: Unknown - Review of Systems General: No Symptoms Pulmonary: No Symptoms Cardiovascular: No Symptoms Gastrointestinal: No Symptoms Neurological: No Symptoms Other: Reports: Diabetes - Physical Assessment NPO Status Date: 09/22/19 NPO Status Time: 21:00 Vital Signs: Last Vital Signs Temp 98.9 F 09/23/19 07:00 Pulse 80 09/23/19 07:00 Resp 16 09/23/19 07:00 BP 142/64 H 09/23/19 07:00 Pulse Ox 96 09/23/19 07:00 ASA Class: 3 Mental Status: Alert & Oriented x3 Airway Class: Mallampati = 2 Dentition: Reports: Dentures, Broken Tooth/Teeth, Missing Tooth/Teeth Thyro-Mental Finger Breadths: 3 Mouth Opening Finger Breadths: 3 Lungs: Clear to Auscultation, Normal Respiratory Effort Cardiovascular: Regular Rate - Allergies Allergies/Adverse Reactions: Allergies Allergy/AdvReac Type Severity Reaction Status Date / Time cephalexin Allergy Other Verified 04/27/19 08:27 Penicillins AdvReac gi upset Verified 04/27/19 08:27 - Anesthesia Plan Beta Nancy: Metoprolol Med Last Dose Date: 09/23/19 Med Last Dose Time: 06:00 - Acknowledgements Anesthesia Type Planned: MAC Pt an Appropriate Candidate for the Planned Anesthesia: Yes Alternatives and Risks of Anesthesia Discussed w Pt/Guardian: Yes Pt/Guardian Understands and Agrees with Anesthesia Plan: Yes PreAnesthesia Questionnaire HEENT History: Reports: Glaucoma, Macular Degeneration Other HEENT History: glasses Cardiovascular History: Reports: Heart Murmur, Hypertension Respiratory History: Reports: Sleep Apnea Other Respiratory History: no longer wears C-PAP. Gastrointestinal History: Reports: GERD, Hiatal Hernia Other Gastrointestinal History: diverticulitis, anal pain, colitis Genitourinary History: Reports: UTI, Recurrent Other Genitourinary History: bladder irritability APPRENTICE/LINEMAN History: Reports: None Musculoskeletal History: Reports: Osteoarthritis Other Musculoskeletal History: spinal stenosis, sacroilliac joint pain Neurological History: Reports: CVA, Headaches, Chronic Other Neuro History: acute metabolic encephlopathy,spinal stenosis, cerebral hemorrhage Endocrine/Metabolic History: Reports: Diabetes, Type II Other Endocrine/Metabolic History: vitamin B12 Hematologic History: Reports: Anemia - Infectious Disease History Infectious Disease History: Reports: Chicken Pox, Measles, Scarlet Fever - Past Surgical History HEENT Surgical History: Reports: Cataract Surgery GI Surgical History: Reports: Cholecystectomy, Colonoscopy, EGD Female Surgical History: Reports: Hysterectomy Musculoskeletal Surgical History: Reports: Carpal Tunnel, Joint Replacement Other Musculoskeletal Surgeries/Procedures:: joint pain and weakness - SUBSTANCE USE Smoking Status *Q: Former Smoker - HOME MEDS Home Medications: Home Meds Enalapril [Vasotec] 20 mg PO DAILY 08/07/16 [History] Furosemide 60 mg PO DAILY 08/07/16 [History] Metoprolol Succinate [Toprol XL] 25 mg PO DAILY 08/07/16 [History] metFORMIN [Glucophage] 500 mg PO BID 08/07/16 [History] Fenofibrate 54 mg PO DAILY 10/15/16 [History] Oxybutynin 5 mg PO DAILY 10/15/16 [History] glipiZIDE [Glipizide] 10 mg PO ACBREAKFAST 10/15/16 [History] Aspirin 81 mg PO DAILY 01/23/17 [History] Omeprazole Magnesium [Prilosec Otc] 20 mg PO DAILY 01/23/17 [History] Latanoprost/Pf [Latanoprost 0.005% Eye Drop] 1 drop EYEBOTH BEDTIME 04/27/19 [ History] Multivit-Min/FA/Lycopen/Lutein [Certavite Sr-Antioxidant Tab] 1 tab PO DAILY 05/05 [History] Polyethylene Glycol [Polyox Wsr-301] 1 packet PO DAILY 04/27/19 [History] Rosuvastatin Calcium 20 mg PO DAILY 04/27/19 [History] - CURRENT (IN HOUSE) MEDS Current Meds: Current Medications Lactated Ringer's (Ringers, Lactated) 1,000 mls @ 125 mls/hr IV ASDIRECTED MAZIN Stop: 09/23/19 23:00 Last Admin: 09/23/19 07:20 Dose: 125 mls/hr Lidocaine/Sodium Bicarbonate (Buffered Lidocaine 1% In Ns 8.4%) 0.25 ml IDERM ONETIME PRN PRN Reason: Prior to IV Start Stop: 09/23/19 18:00 Last Admin: 09/23/19 07:19 Dose: 0.25 ml Sodium Chloride (Saline Flush) 10 ml FLUSH ASDIRECTED PRN PRN Reason: Keep Vein Open Stop: 09/23/19 18:00 Discontinued Medications Lactated Ringer's (Ringers, Lactated) 1,000 mls @ 125 mls/hr IV ASDIRECTED MAZIN Stop: 04/28/19 23:00 Lidocaine HCl (Xylocaine-Mpf 1%) Confirm Administered Dose 2 mls @ as directed .ROUTE .STK-MED ONE Stop: 09/23/19 07:22 Lidocaine/Sodium Bicarbonate (Buffered Lidocaine 1% In Ns 8.4%) 0.25 ml IDERM ONETIME PRN PRN Reason: Prior to IV Start Stop: 04/28/19 18:00 Propofol (Diprivan 20 Ml) Confirm Administered Dose 400 mg .ROUTE .STK-MED ONE Stop: 09/23/19 07:21 Sodium Chloride (Saline Flush) 10 ml FLUSH ASDIRECTED PRN PRN Reason: Keep Vein Open Stop: 04/28/19 18:00
--- NOTE | 2019-09-23 09:12 | PCM.OPNOTE ---
- General Post-Op/Procedure Note Date of Surgery/Procedure: 09/23/19 Operative Procedure(s): EGD and colonoscopy Findings: 1. Gastritis 2. Gastric polyps 3. Bile reflux 4. Hiatal hernia 5. Freeman's changes 6. Esophageal polyps 7. Melanosis coli 8. Colon polyps 9. Sigmoid colitis Pre Op Diagnosis: anemia Post-Op Diagnosis: same Anesthesia Technique: MAC Primary Surgeon: Hui Garcia Anesthesia Provider: Gold Carpenter Pathology: 1. Gastric antrum biopsy 2. GE junction/Freeman's biopsies x8 3. Esophageal polyps x2 4. Ileocecal valve polyp 5. Transverse colon polyp x2 6. Sigmoid polyp 7. Sigmoid colon biopsy Fluid Replacement, Intraop: 1,000 Output, Urine Amount: 0 EBL in mLs: 0 Complications: none apparent Condition: Good
--- NOTE | 2019-09-23 09:25 | PCM.PRNOTE ---
- Free Text/Narrative Note: Operative Report Date of Procedure: September 23, 2019 Pre Op Diagnosis: Anemia Post-Op Diagnosis: Same Operative Procedures: 1. EGD with biopsy 2. Colonoscopy to the cecum with biopsy and polypectomy Primary Surgeon: Hui Garcia MD Anesthesia Provider: Gold Carpenter CRNA Anesthesia Technique: MAC IV Fluid Replacement, Intraop: 1000cc crystalloid Output, Urine Amount: 0cc EBL in mLs: 0cc Findings: 1. Gastritis 2. Gastric polyps 3. Bile reflux 4. Hiatal hernia 5. Freeman's changes 6. Esophageal polyps 7. Melanosis coli 8. Colon polyps 9. Sigmoid colitis Specimens: 1. Gastric antrum biopsy 2. GE junction/Freeman's biopsies x8 3. Esophageal polyps x2 4. Ileocecal valve polyp 5. Transverse colon polyp x2 6. Sigmoid polyp 7. Sigmoid colon biopsy Drain/Tubes: None Indication: The patient is an 84-year-old lady who presented to the clinic with anemia. The patient was consented for a diagnostic EGD and colonoscopy. Risks of bleeding, and perforation were discussed, and the patient agreed to the risks and wished to proceed. Description of the procedure: The patient was taken back to the endoscopy suite, and placed in the left lateral decubitus position. A bite block was placed. The patient was sedated with MAC anesthesia. The Olympus video endoscope was inserted into the oropharynx and guided under direct vision into the esophagus, stomach, and duodenum. The duodenal bulb and second portion of the duodenum were unremarkable. The gastric antrum was inspected and cold biopsy forceps were used to take tissue samples for H. pylori. There was gastritis with linear erythema in the antrum. The scope was withdrawn to the stomach and retroflexed. There was diffuse polyposis in the body of the stomach as well as bilious fluid and residue in the body of the stomach. No erosions or ulcers were noted. The scope was withdrawn to the esophagus. A this point we noted a moderate- sized sliding hiatal hernia. 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 Biopsies were taken with a cold biopsy forceps in 4 quadrants on 2 levels of these changes, and sent for pathology. The endoscope was then withdrawn while paying attention to the mucosa of the esophagus. There were a few flat polyps noted in the upper one third of the esophagus. 2 of these polyps were removed with cold biopsy forceps and sent for pathologic examination. Next, anorectal examination was performed. No lesions, masses or hemorrhoids were noted externally or on palpation. There was a small amount of dried blood in the gluteal cleft superior to the anal opening with no obvious skin lesion. The scope was placed into the rectum and advanced to cecum. Upon reaching the cecum, and the patients cecum was entered. There was moderate tortuosity of the colon. The ileocecal valve was well visualized and the appendiceal orifice identified. At this point, the scope was slowly withdrawn, paying attention to the mucosa. The patient had good bowel prep, 85-95% of the mucosa was visible after some washing and suctioning. Diffuse melanosis coli was noted in every section of the colon. There was a 2 mm flat polyp on the ileocecal valve that was removed with a cold biopsy forceps. In the transverse colon, 2 flat polyps measuring 2 to 4 mm were removed using cold biopsy forceps. In the sigmoid colon there was a polypoid area that was addressed and removed using cold biopsy forceps, however, on close inspection it was unclear if this was redundant diverticular tissue. The mucosa was very delicate and erythematous appearing. It was unclear if this was due to the irritation from the colonoscope or colitis. Diagnosis of colitis was favored due to tenacious mucus noted in the rectum and sigmoid colon. Biopsies were taken in the sigmoid colon using cold biopsy forceps. In the rectum, scope was retroflexed and some hemorrhoidal tissue was noted. The scope was placed back in the lumen and excess air was aspirated. The scope was removed. The patient tolerated the procedure very well. Complications: None apparent Condition: The patient was transported to PACU in stable condition. Hui Garcia MD General Surgery
--- NOTE | 2019-09-23 09:31 | PCM48HPAN ---
Post Anesthesia Note - EVALUATION WITHIN 48HRS OF ANESTHETIC Vital Signs in Normal Range: Yes Patient Participated in Evaluation: Yes Respiratory Function Stable: Yes Airway Patent: Yes Cardiovascular Function Stable: Yes Hydration Status Stable: Yes Pain Control Satisfactory: Yes Nausea and Vomiting Control Satisfactory: Yes Mental Status Recovered: Yes Vital Signs: Last Vital Signs Temp 97.1 F 09/23/19 09:13 Pulse 68 09/23/19 09:13 Resp 16 09/23/19 09:13 BP 94/48 L 09/23/19 09:13 Pulse Ox 98 09/23/19 09:13
[2019-09-23 09:56] VITALS: BP 142/59; PULSE 64
== END 2019-09-23 10:17 | disposition home or self-care (01) ==
LOC: JD.SDS 06:49
PROVIDERS: ATTEND Surgery
DX: D12.3 Benign neoplasm of transverse colon (principal); D12.0 Benign neoplasm of cecum; K63.89 Other specified diseases of intestine; K29.50 Unspecified chronic gastritis without bleeding; K31.89 Other diseases of stomach and duodenum; K22.70 Barrett's esophagus without dysplasia; K31.7 Polyp of stomach and duodenum; K52.9 Noninfective gastroenteritis and colitis, unspecified; K64.9 Unspecified hemorrhoids; K57.30 Diverticulosis of large intestine without perforation or abscess without bleeding; K44.9 Diaphragmatic hernia without obstruction or gangrene; I10 Essential (primary) hypertension; E11.9 Type 2 diabetes mellitus without complications; E78.2 Mixed hyperlipidemia; Z98.890 Other specified postprocedural states; Z79.84 Long term (current) use of oral hypoglycemic drugs; Z79.899 Other long term (current) drug therapy; Z87.891 Personal history of nicotine dependence; Z88.0 Allergy status to penicillin; Z88.8 Allergy status to other drugs, medicaments and biological substances; Z90.49 Acquired absence of other specified parts of digestive tract
CPT/HCPCS: 43239; 45380; J2001; J2704; J7120; 00813

== ENCOUNTER 2020-07-06 13:15 | Emergency (ER) | payer MEDICARE, BC ==
[2020-07-06] MEDS ORDERED: Sodium Chloride 0.9% 10 ML Syringe FLUSH PRN (13:40)
[2020-07-06] MEDS ORDERED: methylPREDNISolone Sodium Succinate 125 MG/2 ML SDV IVPUSH PRN (13:41)
[2020-07-06] MEDS ORDERED: diphenhydrAMINE 50 MG/ML SDV IVPUSH PRN (13:41)
[2020-07-06] MEDS ORDERED: EPINEPHrine 1 MG/ML SDV IM PRN (13:41)
[2020-07-06] MEDS ORDERED: Famotidine 20 MG/2 ML SDV IVPUSH PRN (13:41)
[2020-07-06] MEDS ORDERED: Casirivimab 1,200 MG, Imdevimab 1,200 MG in Sodium Chloride 0.9% 230 ML IV ONE (13:42)
[2020-07-06] MEDS ORDERED: Sodium Chloride 0.9% 10 ML Syringe FLUSH SCH (13:45)
--- NOTE | 2020-07-06 13:45 | EDM.PDOC ---
ED HPI GENERAL MEDICAL PROBLEM - General Chief Complaint: General Stated Complaint: COVID +/ANTIBODIES Time Seen by Provider: 07/06/20 13:28 Source of Information: Reports: Patient, RN Notes Reviewed History Limitations: Reports: No Limitations - History of Present Illness INITIAL COMMENTS - FREE TEXT/NARRATIVE: Patient is an 84-year-old female who presents to the ED via direction from her primary care provider for her COVID-19 disease. The patient was diagnosed with COVID-19 on 06/29/2020. She notes that she has been doing fairly well, but she contacted her primary care provider, Dr. Butler, as she was questioning whether or not she could get the monoclonal antibody therapy for her COVID-19 disease. She is elderly, and does have underlying diabetic issues. This in cludes her for monoclonal antibody therapy. Other than those risk factors, she is denying any fevers or chills, cough or shortness of breath, nausea/vomiting/diarrhea. O2 sats are 96% on room air, pulse is 100 bpm, temperature is 97.8 F, respiratory rate of 20, blood pressure 128/48. - Related Data Allergies Allergy/AdvReac Type Severity Reaction Status Date / Time cephalexin Allergy Severe Other Verified 07/06/20 13:26 Penicillins AdvReac Severe gi upset Verified 07/06/20 13:26 Home Meds: Home Meds Enalapril [Vasotec] 20 mg PO DAILY 08/07/16 [History] Furosemide 60 mg PO DAILY 08/07/16 [History] Metoprolol Succinate [Toprol XL] 25 mg PO DAILY 08/07/16 [History] metFORMIN [Glucophage] 500 mg PO BID 08/07/16 [History] Fenofibrate 54 mg PO DAILY 10/15/16 [History] Oxybutynin 5 mg PO DAILY 10/15/16 [History] glipiZIDE [Glipizide] 5 mg PO ACBREAKFAST 10/15/16 [History] Aspirin 81 mg PO DAILY 01/23/17 [History] Omeprazole Magnesium [Prilosec Otc] 20 mg PO DAILY 01/23/17 [History] Latanoprost/Pf [Latanoprost 0.005% Eye Drop] 1 drop EYEBOTH BEDTIME 04/27/19 [History] Multivit-Min/FA/Lycopen/Lutein [Certavite Senior Tablet] 1 tab PO DAILY 04/27/19 [History] Polyethylene Glycol [Polyox Wsr-301] 1 packet PO DAILY 04/27/19 [History] Rosuvastatin Calcium 20 mg PO DAILY 04/27/19 [History] Past Medical History HEENT History: Reports: Glaucoma, Macular Degeneration Other HEENT History: glasses Cardiovascular History: Reports: Heart Failure, Heart Murmur, Hypertension Respiratory History: Reports: Sleep Apnea Other Respiratory History: no longer wears C-PAP. Gastrointestinal History: Reports: GERD, Hiatal Hernia Other Gastrointestinal History: diverticulitis, anal pain, colitis Genitourinary History: Reports: UTI, Recurrent Other Genitourinary History: bladder irritability Musculoskeletal History: Reports: Osteoarthritis Other Musculoskeletal History: spinal stenosis, sacroilliac joint pain Neurological History: Reports: CVA, Headaches, Chronic Other Neuro History: acute metabolic encephlopathy,spinal stenosis, cerebral hemorrhage Endocrine/Metabolic History: Reports: Diabetes, Type II Other Endocrine/Metabolic History: vitamin B12 deficiency Hematologic History: Reports: Anemia - Infectious Disease History Infectious Disease History: Reports: Chicken Pox, Measles, Novel Coronavirus (06/29/2020), Scarlet Fever - Past Surgical History HEENT Surgical History: Reports: Cataract Surgery Other HEENT Surgeries/Procedures: bilateral cataract surgery GI Surgical History: Reports: Cholecystectomy, Colonoscopy, EGD Female Surgical History: Reports: Hysterectomy Musculoskeletal Surgical History: Reports: Carpal Tunnel, Joint Replacement Other Musculoskeletal Surgeries/Procedures:: joint pain and weakness Social & Family History - Tobacco Use Tobacco Use Status *Q: Never Tobacco User - Caffeine Use Caffeine Use: Reports: Coffee - Recreational Drug Use Recreational Drug Use: No ED ROS GENERAL - Review of Systems Review Of Systems: Comprehensive ROS is negative, except as noted in HPI. ED EXAM, GENERAL - Physical Exam Exam: See Below Exam Limited By: No Limitations General Appearance: Alert, WD/WN, No Apparent Distress Cardiovascular: Normal Peripheral Pulses, Regular Rate, Rhythm, No Murmur Peripheral Pulses: 2+: Radial (L), Radial (R) Extremities: Normal Inspection, Normal Capillary Refill Neurological: Alert, Oriented, Normal Cognition, No Motor/Sensory Deficits Psychiatric: Normal Affect, Normal Mood Skin Exam: Warm, Dry, Intact, Normal Color, No Rash #1 Interpretation EKG Date: 07/06/20 Time: 14:06 Rhythm: NSR Rate (Beats/Min): 86 [place]: Normal P-Wave: Present QRS: Normal ST-T: Normal QT: Normal Comparison: NA - No Prior EKG EKG Interpretation Comments: No obvious ischemia or acute ST changes noted, reviewed by myself and Dr. Musa. Course - Vital Signs Last Recorded V/S: Last Vital Signs Temp 97.8 F 07/06/20 13:24 Pulse 100 07/06/20 13:24 Resp 20 07/06/20 13:24 BP 128/48 L 07/06/20 13:24 Pulse Ox 96 07/06/20 13:24 - Orders/Labs/Meds Orders: Active Orders 24 hr Category Date Time Status EKG Documentation Completion [RC] STAT Care 07/06/20 13:40 Active Peripheral IV Care [RC] . DIRECTED Care 07/06/20 13:41 Active Vital Signs [RC] Q15M Care 07/06/20 13:42 Active COMPREHENSIVE METABOLIC PN,CMP [CHEM] Stat Lab 07/06/20 13:35 Results FERRITIN [CHEM] Stat Lab 07/06/20 13:35 Received LACTATE DEHYDROGENASE,LDH [CHEM] Stat Lab 07/06/20 13:35 Results MAGNESIUM [CHEM] Stat Lab 07/06/20 13:35 Results PRO B-TYPE NATRIUR PEPT,BNPPRO [CHEM] Stat Lab 07/06/20 13:35 Received TROPONIN I [CHEM] Stat Lab 07/06/20 13:35 Results EPINEPHrine [Adrenalin] Med 07/06/20 13:41 Active 0.3 mg IM ONETIME PRN Famotidine [Pepcid] Med 07/06/20 13:41 Active 20 mg IVPUSH ONETIME PRN Sodium Chloride 0.9% [Saline Flush] Med 07/06/20 13:40 Active 10 ml FLUSH ASDIRECTED PRN Sodium Chloride 0.9% [Saline Flush] Med 07/06/20 13:45 Active 30 ml FLUSH ASDIRECTED diphenhydrAMINE [Benadryl] Med 07/06/20 13:41 Active 50 mg IVPUSH ONETIME PRN methylPREDNISolone Sod Succ [Solu-MEDROL] Med 07/06/20 13:41 Active 125 mg IVPUSH ONETIME PRN Peripheral IV Insertion Adult [OM.PC] Routine Oth 07/06/20 13:40 Ordered Medication Orders Diphenhydramine HCl (Benadryl) 50 mg IVPUSH ONETIME PRN PRN Reason: hypersensitivity reaction Epinephrine HCl (Adrenalin) 0.3 mg IM ONETIME PRN PRN Reason: hypersensitivity reaction Famotidine (Pepcid) 20 mg IVPUSH ONETIME PRN PRN Reason: hypersensitivity reaction Methylprednisolone Sodium Succinate (Solu-Medrol) 125 mg IVPUSH ONETIME PRN PRN Reason: hypersensitivity reaction Sodium Chloride (Saline Flush) 10 ml FLUSH ASDIRECTED PRN PRN Reason: Keep Vein Open Last Admin: 07/06/20 13:58 Dose: 10 ml Documented by: DORA Sodium Chloride (Saline Flush) 30 ml FLUSH ASDIRECTED MAZIN Labs: Laboratory Tests 07/06/20 07/06/20 07/06/20 Range/Units 13:35 13:35 13:35 WBC 5.61 (3.98-10.04) K/mm3 RBC 3.67 L (3.98-5.22) M/mm3 Hgb 10.3 L (11.2-15.7) gm/dl Hct 31.3 L (34.1-44.9) % MCV 85.3 (79.4-94.8) fl MCH 28.1 (25.6-32.2) pg MCHC 32.9 (32.2-35.5) g/dl RDW Std Deviation 41.9 (36.4-46.3) fL Plt Count 341 (182-369) K/mm3 MPV 10.0 (9.4-12.3) fl Neutrophils % (Manual) 78 H (40-60) % Band Neutrophils % 0 (0-10) % Lymphocytes % (Manual) 15 L (20-40) % Atypical Lymphs % 0 % Monocytes % (Manual) 7 (2-10) % Eosinophils % (Manual) 0 L (0.7-5.8) % Basophils % (Manual) 0 L (0.1-1.2) Platelet Estimate Adequate Poikilocytosis 2+ moderate Anisocytosis 1+ Ovalocytes 1+ slight RBC Morph Comment Normal PT 11.6 (9.7-12.0) SECONDS INR 1.09 APTT 27.9 (21.7-31.4) SECONDS D-Dimer, Quantitative 2.16 H (0.19-0.50) mg/L Sodium (136-145) mEq/L Potassium (3.5-5.1) mEq/L Chloride (98-107) mEq/L Carbon Dioxide (21-32) mEq/L Anion Gap (5-15) BUN (7-18) mg/dL Creatinine (0.55-1.02) mg/dL Est Cr Clr Drug Dosing mL/min Estimated GFR (MDRD) (>60) mL/min BUN/Creatinine Ratio (14-18) Glucose (83-115) mg/dL Lactic Acid (0.4-2.0) mmol/L Calcium (8.5-10.1) mg/dL Magnesium (1.8-2.4) mg/dl Total Bilirubin (0.2-1.0) mg/dL AST (15-37) U/L ALT (14-59) U/L Alkaline Phosphatase (46-116) U/L Troponin I (0.00-0.056) ng/mL C-Reactive Protein 15.9 H* (<1.0) mg/dL Total Protein (6.4-8.2) g/dl Albumin (3.4-5.0) g/dl Globulin gm/dL Albumin/Globulin Ratio (1-2) 07/06/20 07/06/20 Range/Units 13:35 13:35 WBC (3.98-10.04) K/mm3 RBC (3.98-5.22) M/mm3 Hgb (11.2-15.7) gm/dl Hct (34.1-44.9) % MCV (79.4-94.8) fl MCH (25.6-32.2) pg MCHC (32.2-35.5) g/dl RDW Std Deviation (36.4-46.3) fL Plt Count (182-369) K/mm3 MPV (9.4-12.3) fl Neutrophils % (Manual) (40-60) % Band Neutrophils % (0-10) % Lymphocytes % (Manual) (20-40) % Atypical Lymphs % % Monocytes % (Manual) (2-10) % Eosinophils % (Manual) (0.7-5.8) % Basophils % (Manual) (0.1-1.2) Platelet Estimate Poikilocytosis Anisocytosis Ovalocytes RBC Morph Comment PT (9.7-12.0) SECONDS INR APTT (21.7-31.4) SECONDS D-Dimer, Quantitative (0.19-0.50) mg/L Sodium 138 (136-145) mEq/L Potassium 3.6 (3.5-5.1) mEq/L Chloride 100 (98-107) mEq/L Carbon Dioxide 22 (21-32) mEq/L Anion Gap 19.6 H (5-15) BUN 39 H (7-18) mg/dL Creatinine 1.6 H (0.55-1.02) mg/dL Est Cr Clr Drug Dosing 22.42 mL/min Estimated GFR (MDRD) 31 (>60) mL/min BUN/Creatinine Ratio 24.4 H (14-18) Glucose 265 H (83-115) mg/dL Lactic Acid 1.4 (0.4-2.0) mmol/L Calcium 8.0 L (8.5-10.1) mg/dL Magnesium 1.4 L (1.8-2.4) mg/dl Total Bilirubin 0.5 (0.2-1.0) mg/dL AST 30 (15-37) U/L ALT 23 (14-59) U/L Alkaline Phosphatase 57 (46-116) U/L Troponin I < 0.017 (0.00-0.056) ng/mL C-Reactive Protein (<1.0) mg/dL Total Protein 6.9 (6.4-8.2) g/dl Albumin 2.5 L (3.4-5.0) g/dl Globulin 4.4 gm/dL Albumin/Globulin Ratio 0.6 L (1-2) Meds: Medications Generic Name Dose Route Start Last Admin Trade Name Freq PRN Reason Stop Dose Admin Diphenhydramine HCl 50 mg 07/06/20 13:41 Benadryl IVPUSH ONETIME PRN hypersensitivity reaction Epinephrine HCl 0.3 mg 07/06/20 13:41 Adrenalin IM ONETIME PRN hypersensitivity reaction Famotidine 20 mg 07/06/20 13:41 Pepcid IVPUSH ONETIME PRN hypersensitivity reaction Methylprednisolone Sodium Succinate 125 mg 07/06/20 13:41 Solu-Medrol IVPUSH ONETIME PRN hypersensitivity reaction Sodium Chloride 10 ml 07/06/20 13:40 07/06/20 13:58 Saline Flush FLUSH 10 ml ASDIRECTED PRN Administration Keep Vein Open Sodium Chloride 30 ml 07/06/20 13:45 Saline Flush FLUSH ASDIRECTED MAZIN Discontinued Medications Generic Name Dose Route Start Last Admin Trade Name Perla PRN Reason Stop Dose Admin Non-Formulary Medication 1,200 250 mls @ 250 mls/hr 07/06/20 13:42 07/06/20 14:36 mg/ Non-Formulary Medication IV 07/06/20 14:41 250 mls/hr 1,200 mg/ Sodium Chloride ONETIME ONE Administration - Re-Assessments/Exams Free Text/Narrative Re-Assessment/Exam: 07/06/20 13:45 Patient presents to the ED for the evaluation of her ongoing COVID-19 disease. I spoke with the patient to provide information about Regeneron treatment. I offered them the "Patient and caregiver [facility] Regeneron fact sheet" to read and review. I stated that the drug has been approved by an emergency use authorization (EUA) process and has not been fully FDA reviewed or approved. The patient meets the EUA requirements. I discussed there are other potential treatment options that are currently not FDA approved to treat COVID-19. I did offer an opportunity to ask questions and all questions were answered. The patient voiced understanding and agreed to proceed with the treatment. For today's purposes we will get baseline labs, baseline chest x-ray, EKG for monitoring purposes of her COVID-19 disease. 07/06/20 14:34 The patient's labs have started to result, her D-dimer is elevated at 2.16, which is likely due to her COVID-19 illness. Kidney function does show abnormality, creatinine 1.6, GFR 31. Lactic acid within normal limits at 1.4, glucose is elevated at 265, magnesium is slightly low at 1.4. Patient's EKG demonstrates no focal ST change or abnormalities, chest x-ray also shows diffuse increased density within the right lung suspicious for Covid pneumonia. 07/06/20 15:34 Patient CRP is 15. Labs are consistent with ongoing COVID-19 infection. Patient looks good and has no other complaints. She is nearing the end of her Regeneron infusion, and doing well. We will plan on discharging her home 1 hour after her infusion has ended for observation purposes. Departure - Departure Time of Disposition: 15:35 Disposition: Home, Self-Care 01 Condition: Good Clinical Impression: COVID-19 - Discharge Information *PRESCRIPTION DRUG MONITORING PROGRAM REVIEWED*: No *COPY OF PRESCRIPTION DRUG MONITORING REPORT IN PATIENT ROMEL: No Instructions: COVID-19: How to Protect Yourself and Others - CDC, COVID-19 Frequently Asked Questions Referrals: Garfield Butler MD [Primary Care Provider] - Forms: ED Department Discharge Additional Instructions: You were seen in the ER today for ongoing and/or worsening respiratory symptoms. Your chest x-ray did demonstrate a small area of COVID-19 (viral) pneumonia on your Right lung. Your oxygen levels were great at 96-97% on room air. You had labs drawn at today's visit, to get a baseline feel for your COVID-19 disease and for general monitoring of your health. All of the labs do demonstrate ongoing COVID-19 infection. You were given IV monoclonal antibody therapy, Regeneron, for your ongoing COVID-19 disease. This medication should hopefully make your symptoms less severe, and lessen your disease course time and get you feeling better sooner rather than later. Please try to increase your oral fluid intake, and eat multiple small meals throughout the day, to keep yourself healthy. You need to keep yourself nourished in order to fight off this disease. You can try a liquid diet like gatorade/powerade as well to get your electrolytes. You may take 500 mg Tylenol every hours 6 hours for pain/fever relief. Do not exceed 4000 mg Tylenol in a 24-hour time span. However, running a fever is your body's natural response to illness, and it allows the body to develop antibodies to disease, we are recommending trying to limit the use of Tylenol as much as possible to allow your body's natural immune response. Recommend you obtain a pulse oximeter and monitor your oxygen levels at home, you should place the monitor on your finger, and sit in a calm, quiet position for a few minutes and then record the number that is on the screen. If this consistently below 90% on room air without movement, this would be cause for concern to come back to the hospital for further management of your COVID-19 disease. Sepsis Event Note (ED) - Evaluation Sepsis Screening Result: No Definite Risk - Focused Exam Vital Signs: Vital Signs Temp Pulse Resp BP Pulse Ox 07/06/20 13:24 97.8 F 100 20 128/48 L 96 - My Orders Last 24 Hours: My Active Orders 07/06/20 13:35 COMPREHENSIVE METABOLIC PN,CMP [CHEM] Stat FERRITIN [CHEM] Stat LACTATE DEHYDROGENASE,LDH [CHEM] Stat MAGNESIUM [CHEM] Stat PRO B-TYPE NATRIUR PEPT,BNPPRO [CHEM] Stat TROPONIN I [CHEM] Stat 07/06/20 13:40 EKG Documentation Completion [RC] STAT Sodium Chloride 0.9% [Saline Flush] 10 ml FLUSH ASDIRECTED PRN Peripheral IV Insertion Adult [OM.PC] Routine 07/06/20 13:41 Peripheral IV Care [RC] . DIRECTED EPINEPHrine [Adrenalin] 0.3 mg IM ONETIME PRN Famotidine [Pepcid] 20 mg IVPUSH ONETIME PRN diphenhydrAMINE [Benadryl] 50 mg IVPUSH ONETIME PRN methylPREDNISolone Sod Succ [Solu-MEDROL] 125 mg IVPUSH ONETIME PRN 07/06/20 13:42 Vital Signs [RC] Q15M 07/06/20 13:45 Sodium Chloride 0.9% [Saline Flush] 30 ml FLUSH ASDIRECTED - Assessment/Plan Last 24 Hours: My Active Orders 07/06/20 13:35 COMPREHENSIVE METABOLIC PN,CMP [CHEM] Stat FERRITIN [CHEM] Stat LACTATE DEHYDROGENASE,LDH [CHEM] Stat MAGNESIUM [CHEM] Stat PRO B-TYPE NATRIUR PEPT,BNPPRO [CHEM] Stat TROPONIN I [CHEM] Stat 07/06/20 13:40 EKG Documentation Completion [RC] STAT Sodium Chloride 0.9% [Saline Flush] 10 ml FLUSH ASDIRECTED PRN Peripheral IV Insertion Adult [OM.PC] Routine 07/06/20 13:41 Peripheral IV Care [RC] . DIRECTED EPINEPHrine [Adrenalin] 0.3 mg IM ONETIME PRN Famotidine [Pepcid] 20 mg IVPUSH ONETIME PRN diphenhydrAMINE [Benadryl] 50 mg IVPUSH ONETIME PRN methylPREDNISolone Sod Succ [Solu-MEDROL] 125 mg IVPUSH ONETIME PRN 07/06/20 13:42 Vital Signs [RC] Q15M 07/06/20 13:45 Sodium Chloride 0.9% [Saline Flush] 30 ml FLUSH ASDIRECTED
--- NOTE | 2020-07-06 14:26 | CR ---
Chest: Portable view of the chest was obtained. Comparison: Prior chest x-ray of 08/16/17. Patchy increased density is noted throughout the right lung. Very slight atelectasis or scarring is noted within the lower left lung. Heart size and mediastinum are normal. Deformity of the right proximal humerus is seen compatible with previous trauma. Bony structures are osteopenic. Impression: 1. Diffuse increased density within the right lung suspicious for COVID pneumonia. 2. Other incidental findings believed to be present. Diagnostic code #3
[2020-07-06 17:26] VITALS: BP 136/74; PULSE 82
== END 2020-07-06 17:00 | disposition home or self-care (01) ==
LOC: JD.ED 13:15
DX: U07.1 COVID-19 (principal); I11.0 Hypertensive heart disease with heart failure; I50.9 Heart failure, unspecified; K21.9 Gastro-esophageal reflux disease without esophagitis; M19.90 Unspecified osteoarthritis, unspecified site; E11.9 Type 2 diabetes mellitus without complications; Z88.1 Allergy status to other antibiotic agents; Z88.0 Allergy status to penicillin; Z79.82 Long term (current) use of aspirin; Z79.899 Other long term (current) drug therapy
CPT/HCPCS: 36415; 71045; 80053; 82728; 83605; 83615; 83735; 83880; 84484; 85007; 85027; 85379; 85610; 85730; 86140; 93005; 99284; J7050; M0243; Q0243; 93010

== ENCOUNTER 2022-02-13 15:17 | Inpatient (IN) | payer MEDICARE, BC ==
[2022-02-13] MEDS ORDERED: Sodium Chloride 0.9% 10 ML Syringe FLUSH PRN (15:27)
[2022-02-13 16:11] LABS: ESTIMATED GFR 10 mL/min (>60)
[2022-02-13] MEDS ORDERED: Sodium Chloride 0.9% 1,000 ML IV STA (16:23)
[2022-02-13] MEDS ORDERED: Magnesium Sulfate/Water 2 GM/50 ML BAG IV ONE (16:25)
[2022-02-13] MEDS ORDERED: 50% Dextrose in Water 50 ML Syringe IVPUSH PRN (18:49)
[2022-02-13] MEDS ORDERED: hydrALAZINE 10 MG Tab PO PRN (18:52)
[2022-02-13] MEDS ORDERED: Insulin Regular, Human 100 Units/ML 3 ML Vial SUBCUT SCH ×2 (19:00→21:00)
[2022-02-13] MEDS: Acetaminophen 325 MG Tab PO PRN (20:26)
[2022-02-13] MEDS: Heparin Sodium 5,000 Units/ML Vial SUBCUT SCH (20:28)
[2022-02-13] MEDS: Latanoprost 0.005% Ophth Soln 2.5 ML Bottle EYEBOTH SCH (22:01)
[2022-02-14] MEDS: Sodium Chloride 0.45% 1,000 ML IV SCH (02:00)
[2022-02-14] MEDS: Heparin Sodium 5,000 Units/ML Vial SUBCUT SCH ×3 (03:23→18:49)
[2022-02-14] MEDS ORDERED: Sodium Chloride 0.45% 1,000 ML IV SCH (08:00)
[2022-02-14] MEDS: Polyethylene Glycol 3350 Powder 17 GM Packet PO SCH (08:56)
[2022-02-14] MEDS: Oxybutynin 5 MG Tab PO SCH (08:56)
[2022-02-14] MEDS: Metoprolol Succinate 25 MG Tab.ER PO SCH (08:56)
[2022-02-14] MEDS: Aspirin 81 MG Tab.Chew PO SCH (08:58)
[2022-02-14] MEDS: Insulin Regular, Human 100 Units/ML 3 ML Vial SUBCUT SCH ×3 (10:54→17:15)
[2022-02-14] MEDS: Acetaminophen 325 MG Tab PO PRN ×2 (17:13→21:30)
[2022-02-14] MEDS: Latanoprost 0.005% Ophth Soln 2.5 ML Bottle EYEBOTH SCH (21:24)
[2022-02-15] MEDS: Heparin Sodium 5,000 Units/ML Vial SUBCUT SCH ×2 (02:59→12:05)
[2022-02-15] MEDS: Insulin Regular, Human 100 Units/ML 3 ML Vial SUBCUT SCH ×2 (07:20→11:49)
[2022-02-15] MEDS ORDERED: Magnesium Sulfate/Water 4 GM in Premix Bag 1 BAG IV ONE (07:40)
[2022-02-15] MEDS ORDERED: Ferrous Sulfate 324 MG Tab.EC PO SCH (09:00)
[2022-02-15] MEDS: Aspirin 81 MG Tab.Chew PO SCH (09:09)
[2022-02-15] MEDS: Oxybutynin 5 MG Tab PO SCH (09:10)
[2022-02-15] MEDS: Acetaminophen 325 MG Tab PO PRN (09:17)
[2022-02-15] MEDS: Sodium Chloride 0.45% 1,000 ML IV SCH (09:24)
[2022-02-15 09:33] VITALS: BP 100/41; PULSE 66
[2022-02-15] MEDS: Metoprolol Succinate 25 MG Tab.ER PO SCH (09:33)
[2022-02-15] MEDS: Polyethylene Glycol 3350 Powder 17 GM Packet PO SCH (09:38)
== END 2022-02-15 14:15 | disposition home or self-care (01) | DRG 683 ==
LOC: JD.ED 15:17 → JD.OB 18:20
PROVIDERS: ADMIT Internal Medicine Cardiovascular Disease; ATTEND Internal Medicine Cardiovascular Disease
DX: N17.9 Acute kidney failure, unspecified (principal); I13.0 Hypertensive heart and chronic kidney disease with heart failure and stage 1 through stage 4 chronic kidney disease, or unspecified chronic kidney disease; E78.5 Hyperlipidemia, unspecified; H40.9 Unspecified glaucoma; E11.649 Type 2 diabetes mellitus with hypoglycemia without coma; Z88.0 Allergy status to penicillin; Z20.822 Contact with and (suspected) exposure to COVID-19; Z88.1 Allergy status to other antibiotic agents; K21.9 Gastro-esophageal reflux disease without esophagitis; K44.9 Diaphragmatic hernia without obstruction or gangrene; M19.90 Unspecified osteoarthritis, unspecified site; Z86.73 Personal history of transient ischemic attack (TIA), and cerebral infarction without residual deficits; G89.29 Other chronic pain; E53.8 Deficiency of other specified B group vitamins; Z86.16 Personal history of COVID-19; Z86.19 Personal history of other infectious and parasitic diseases; Z79.899 Other long term (current) drug therapy; Z79.82 Long term (current) use of aspirin; Z79.84 Long term (current) use of oral hypoglycemic drugs; Z98.41 Cataract extraction status, right eye; Z98.42 Cataract extraction status, left eye; Z87.440 Personal history of urinary (tract) infections; Z90.49 Acquired absence of other specified parts of digestive tract; Z90.710 Acquired absence of both cervix and uterus; N18.9 Chronic kidney disease, unspecified
CPT/HCPCS: 36415; 80048; 80053; 80061; 81001; 82947; 83735; 85025; 85027; 97110-GP; 97161-GP; 97166-GO; 99221; 99232; 99238; A9270-GY; J1644; J1815-GY; J3475; J3490; J7030; U0002

== ENCOUNTER 2022-05-08 10:06 | Emergency (ER) | payer MEDICARE, BC ==
[2022-05-08] MEDS ORDERED: Acetaminophen 325 MG Tab PO ONE (10:53)
[2022-05-08] MEDS ORDERED: Acetaminophen/HYDROcodone 325-5 MG Tab PO ONE (10:54)
[2022-05-08 12:22] VITALS: BP 147/70; PULSE 74
== END 2022-05-08 11:45 | disposition home or self-care (01) ==
LOC: JD.ED 10:06
DX: H53.9 Unspecified visual disturbance (principal); R51.9 Headache, unspecified; I11.0 Hypertensive heart disease with heart failure; I50.9 Heart failure, unspecified; E11.9 Type 2 diabetes mellitus without complications; Z88.1 Allergy status to other antibiotic agents; Z88.0 Allergy status to penicillin; Z79.899 Other long term (current) drug therapy; Z79.84 Long term (current) use of oral hypoglycemic drugs; Z90.49 Acquired absence of other specified parts of digestive tract; Z86.16 Personal history of COVID-19; Z90.710 Acquired absence of both cervix and uterus
CPT/HCPCS: 82947; 99284; A9270

== ENCOUNTER 2023-06-07 11:35 | Emergency (ER) | payer MEDICARE, BC ==
[2023-06-07] MEDS ORDERED: Sodium Chloride 0.9% 10 ML Syringe FLUSH PRN ×2 (12:44→14:41)
[2023-06-07 13:01] LABS: BASOPHILS PERCENT AUTO 0.3 % (0.0-1.0); EOSINOPHILS ABSOLUTE AUTO 0.1 K/mm3 (0.0-0.4); EOSINOPHILS PERCENT AUTO 0.9 % (0.0-6.0); HEMATOCRIT 26.3 % (37.0-47.0); HEMOGLOBIN 8.8 gm/dl (12.0-16.0); IMMATURE GRAN ABSOLUTE AUTO 0.03 K/mm3 (0.00-0.05); IMMATURE GRAN PERCENT AUTO 0.5 % (0.0-0.4); LYMPHOCYTES ABSOLUTE AUTO 1.5 K/mm3 (1.0-4.8); LYMPHOCYTES PERCENT AUTO 24.2 % (24.0-44.0); MEAN CORPUSCULAR HEMOGLOBIN 30.8 pg (28.0-32.0); MEAN CORPUSCULAR HGB CONC 33.5 g/dl (32.0-36.0); MEAN PLATELET VOLUME 10.8 fl (9.4-12.3); MONOCYTES ABSOLUTE AUTO 0.7 K/mm3 (0.0-0.8); MONOCYTES PERCENT AUTO 10.7 % (0.0-8.0); NEUTROPHILS PERCENT AUTO 63.4 % (41.0-71.0); PLATELET COUNT,PLT 275 K/mm3 (150-400); RED BLOOD CELL COUNT 2.86 M/mm3 (4.10-5.30); WHITE BLOOD CELL COUNT,WBC 6.37 K/mm3 (3.9-11.3)
[2023-06-07 13:21] LABS: A/G RATIO 0.7 (1-2); ALBUMIN 2.6 g/dl (3.4-5.0); ANION GAP 14.8 (5-15); BILIRUBIN TOTAL 0.3 mg/dL (0.2-1.0); BUN/CREATININE RATIO 13.5 (14-18); CREATININE 1.7 mg/dL (0.55-1.02); EST CRCL DRUG DOSING (CG) 17.38 mL/min; MAGNESIUM 0.5 mg/dL (1.8-2.4); POTASSIUM,K 2.8 mEq/L (3.5-5.1); PROTEIN TOTAL,TP 6.5 g/dl (6.4-8.2)
[2023-06-07 13:25] LABS: C-REACTIVE PROTEIN 13.3 mg/dL (<1.0); CALCIUM 5.7 mg/dL (8.5-10.1)
[2023-06-07 14:07] LABS: APPEARANCE,URINE CLEAR (Clear); BILIRUBIN,URINE NEGATIVE (Negative); COLOR,URINE YELLOW (Yellow); GLUCOSE,URINE NEGATIVE (Negative); KETONES,URINE NEGATIVE (Negative); LEUKOCYTE ESTERASE,URINE 1+ (Negative); NITRITE,URINE NEGATIVE (Negative); OCCULT BLOOD,URINE TRACE-INTACT (Negative); PROTEIN,URINE 2+ (Negative); UROBILINOGEN,URINE 0.2 (0.2-1.0)
[2023-06-07] MEDS ORDERED: Iopamidol 612 MG/ML 100 ML Bottle IVPUSH ONE (14:41)
[2023-06-07] MEDS ORDERED: Potassium Chloride 20 MEQ Tab.ER PO ONE (14:42)
[2023-06-07 14:43] LABS: BACTERIA,URINE MANY /hpf (FEW); EPITHELIAL CELLS,URINE 0-5 /hpf (0-5); MUCUS,URINE FEW /hpf (FEW)
[2023-06-07 15:38] LABS: POTASSIUM,K 2.8 mEq/L (3.5-5.1)
[2023-06-07 15:55] LABS: CALCIUM 5.8 mg/dL (8.5-10.1)
[2023-06-07 19:35] VITALS: BP 164/82; PULSE 112
== END 2023-06-07 16:48 | disposition home or self-care (01) ==
LOC: JD.ED 11:35
DX: K59.00 Constipation, unspecified (principal); E87.6 Hypokalemia; E83.51 Hypocalcemia; I11.0 Hypertensive heart disease with heart failure; I50.9 Heart failure, unspecified; K21.9 Gastro-esophageal reflux disease without esophagitis; E11.9 Type 2 diabetes mellitus without complications; Z86.73 Personal history of transient ischemic attack (TIA), and cerebral infarction without residual deficits; Z86.16 Personal history of COVID-19; Z90.49 Acquired absence of other specified parts of digestive tract; Z90.710 Acquired absence of both cervix and uterus; Z79.82 Long term (current) use of aspirin; Z79.899 Other long term (current) drug therapy; Z79.84 Long term (current) use of oral hypoglycemic drugs; Z88.0 Allergy status to penicillin; Z88.1 Allergy status to other antibiotic agents
CPT/HCPCS: 36415; 74177; 80053; 81001; 82310; 83690; 83735; 84132; 85025; 86140; 93005; 99284; A9270; J3490; Q9967

== ENCOUNTER 2024-11-26 14:10 | Inpatient (IN) | payer MEDICARE, OTHER ==
[2024-11-26 16:40] LABS: BASOPHILS PERCENT AUTO 0.3 % (0.0-1.0); EOSINOPHILS ABSOLUTE AUTO 0.1 K/mm3 (0.0-0.4); EOSINOPHILS PERCENT AUTO 0.6 % (0.0-6.0); HEMATOCRIT 23.7 % (37.0-47.0); HEMOGLOBIN 7.9 gm/dl (12.0-16.0); IMMATURE GRAN ABSOLUTE AUTO 0.09 K/mm3 (0.00-0.05); IMMATURE GRAN PERCENT AUTO 1.1 % (0.0-0.4); LYMPHOCYTES ABSOLUTE AUTO 1.3 K/mm3 (1.0-4.8); LYMPHOCYTES PERCENT AUTO 16.1 % (24.0-44.0); MEAN CORPUSCULAR HGB CONC 33.3 g/dl (32.0-36.0); MEAN PLATELET VOLUME 10.8 fl (9.4-12.3); MONOCYTES ABSOLUTE AUTO 0.7 K/mm3 (0.0-0.8); NEUTROPHILS ABSOLUTE AUTO 5.7 K/mm3 (1.8-7.7); NEUTROPHILS PERCENT AUTO 72.9 % (41.0-71.0); PLATELET COUNT,PLT 333 K/mm3 (150-400); RED BLOOD CELL COUNT 2.47 M/mm3 (4.10-5.30); WHITE BLOOD CELL COUNT,WBC 7.88 K/mm3 (3.9-11.3)
[2024-11-26 16:46] LABS: A/G RATIO 0.9 (1-2); ANION GAP 15.9 (5-15); BILIRUBIN TOTAL 0.5 mg/dL (0.2-1.0); BUN/CREATININE RATIO 20.4 (14-18); C-REACTIVE PROTEIN 2.47 mg/dL (<0.30); CREATININE 2.7 mg/dL (0.55-1.02); EST CRCL DRUG DOSING (CG) 10.54 mL/min; POTASSIUM,K 3.9 mEq/L (3.5-5.1); PROTEIN TOTAL,TP 6.3 g/dl (6.4-8.2)
[2024-11-26 16:49] LABS: CALCIUM 5.9 mg/dL (8.5-10.1)
[2024-11-26 16:56] LABS: APPEARANCE,URINE CLEAR (Clear); BILIRUBIN,URINE NEGATIVE (Negative); COLOR,URINE YELLOW (Yellow); GLUCOSE,URINE NEGATIVE (Negative); KETONES,URINE NEGATIVE (Negative); LEUKOCYTE ESTERASE,URINE TRACE (Negative); NITRITE,URINE POSITIVE (Negative); OCCULT BLOOD,URINE NEGATIVE (Negative); PH,URINE 6.5 (5.0-8.0); PROTEIN,URINE TRACE (Negative); UROBILINOGEN,URINE 0.2 (0.2-1.0)
[2024-11-26 17:08] LABS: BACTERIA,URINE MANY /hpf (FEW); MUCUS,URINE FEW /hpf (FEW); RBC,URINE 0-5 /hpf (0-5); SQUAMOUS EPITHELIAL CELLS,UR 0-5 /hpf (0-5)
[2024-11-26] MEDS: Calcium Gluconate 10% 1 GM/10 ML SDV IVPUSH ONE (17:32)
[2024-11-26] MEDS: Sodium Chloride 0.9% 10 ML Syringe FLUSH PRN (17:32)
[2024-11-26] MEDS: Levofloxacin/Dextrose 5%-Water 250 MG in Premix Bag 1 BAG IV ONE (17:39)
[2024-11-26] MEDS: Magnesium Sulfate 2 GM/50 mL 2 GM/50 ML BAG IV STA (18:05)
[2024-11-26 18:44] LABS: PHOSPHORUS 5.2 mg/dL (2.6-4.7); TSH 2.06 uIU/mL (0.358-3.74)
[2024-11-26] MEDS: Sodium Chloride 0.9% 1,000 ML IV SCH (19:10)
[2024-11-26] MEDS: Magnesium Sulf/Wat 4 GM/50 mL 4 GM in Premix Bag 1 BAG IV ONE (19:11)
[2024-11-26] MEDS: Acetaminophen 325 MG Tab PO PRN (20:25)
[2024-11-26] MEDS: Melatonin 3 MG Tab PO PRN (20:25)
[2024-11-26] MEDS: Sodium Chloride 0.9% 500 ML IV ONE (21:11)
[2024-11-27 04:30] LABS: BASOPHILS PERCENT AUTO 0.3 % (0.0-1.0); EOSINOPHILS ABSOLUTE AUTO 0.1 K/mm3 (0.0-0.4); EOSINOPHILS PERCENT AUTO 2.1 % (0.0-6.0); HEMATOCRIT 22.6 % (37.0-47.0); HEMOGLOBIN 7.7 gm/dl (12.0-16.0); IMMATURE GRAN ABSOLUTE AUTO 0.06 K/mm3 (0.00-0.05); LYMPHOCYTES ABSOLUTE AUTO 1.2 K/mm3 (1.0-4.8); LYMPHOCYTES PERCENT AUTO 19.7 % (24.0-44.0); MEAN CORPUSCULAR HEMOGLOBIN 32.4 pg (28.0-32.0); MEAN CORPUSCULAR HGB CONC 34.1 g/dl (32.0-36.0); MEAN PLATELET VOLUME 10.6 fl (9.4-12.3); MONOCYTES ABSOLUTE AUTO 0.6 K/mm3 (0.0-0.8); NEUTROPHILS ABSOLUTE AUTO 4.1 K/mm3 (1.8-7.7); NEUTROPHILS PERCENT AUTO 66.9 % (41.0-71.0); PLATELET COUNT,PLT 270 K/mm3 (150-400); RED BLOOD CELL COUNT 2.38 M/mm3 (4.10-5.30)
[2024-11-27 04:53] LABS: A/G RATIO 0.8 (1-2); ALBUMIN 2.6 g/dl (3.4-5.0); ANION GAP 14.1 (5-15); BILIRUBIN TOTAL 0.3 mg/dL (0.2-1.0); BUN/CREATININE RATIO 20.8 (14-18); CALCIUM 6.3 mg/dL (8.5-10.1); CREATININE 2.5 mg/dL (0.55-1.02); EST CRCL DRUG DOSING (CG) 11.39 mL/min; MAGNESIUM 2.3 mg/dL (1.8-2.4); POTASSIUM,K 3.1 mEq/L (3.5-5.1); PROTEIN TOTAL,TP 5.9 g/dl (6.4-8.2)
[2024-11-27] MEDS: Potassium Chloride 10 MEQ in Premix Bag 1 BAG IV SCH (09:25)
[2024-11-27] MEDS: Potassium Chloride 20 MEQ Tab.ER PO SCH (09:27)
[2024-11-27] MEDS: Empagliflozin 10 MG Tab PO SCH (12:09)
[2024-11-27] MEDS: Levofloxacin 500 MG Tab PO SCH (16:35)
[2024-11-27] MEDS: Calcium Carbonate 600 MG Tab PO SCH (16:35)
[2024-11-27] MEDS: Acetaminophen/oxyCODONE 325-5 MG Tab PO PRN (16:36)
[2024-11-27] MEDS ORDERED: Levofloxacin/Dextrose 5%-Water 250 MG in Premix Bag 1 BAG IV SCH (17:15)
[2024-11-28 05:46] LABS: BASOPHILS PERCENT AUTO 0.4 % (0.0-1.0); EOSINOPHILS ABSOLUTE AUTO 0.2 K/mm3 (0.0-0.4); EOSINOPHILS PERCENT AUTO 2.9 % (0.0-6.0); HEMOGLOBIN 7.5 gm/dl (12.0-16.0); IMMATURE GRAN ABSOLUTE AUTO 0.08 K/mm3 (0.00-0.05); IMMATURE GRAN PERCENT AUTO 1.5 % (0.0-0.4); LYMPHOCYTES ABSOLUTE AUTO 1.2 K/mm3 (1.0-4.8); LYMPHOCYTES PERCENT AUTO 22.4 % (24.0-44.0); MEAN CORPUSCULAR HEMOGLOBIN 32.1 pg (28.0-32.0); MEAN CORPUSCULAR HGB CONC 32.6 g/dl (32.0-36.0); MEAN PLATELET VOLUME 10.8 fl (9.4-12.3); MONOCYTES ABSOLUTE AUTO 0.5 K/mm3 (0.0-0.8); MONOCYTES PERCENT AUTO 9.9 % (0.0-8.0); NEUTROPHILS ABSOLUTE AUTO 3.3 K/mm3 (1.8-7.7); NEUTROPHILS PERCENT AUTO 62.9 % (41.0-71.0); PLATELET COUNT,PLT 321 K/mm3 (150-400); RED BLOOD CELL COUNT 2.34 M/mm3 (4.10-5.30); WHITE BLOOD CELL COUNT,WBC 5.23 K/mm3 (3.9-11.3)
[2024-11-28 05:52] LABS: MEAN CORPUSCULAR VOLUME 98.3 fl (83.0-99.0)
[2024-11-28 05:58] LABS: ALBUMIN 2.5 g/dl (3.4-5.0)
[2024-11-28 06:20] LABS: A/G RATIO 0.7 (1-2); BILIRUBIN TOTAL 0.2 mg/dL (0.2-1.0); BUN/CREATININE RATIO 20.9 (14-18); CALCIUM 7.3 mg/dL (8.5-10.1); CREATININE 2.2 mg/dL (0.55-1.02); EST CRCL DRUG DOSING (CG) 12.94 mL/min; MAGNESIUM 1.9 mg/dL (1.8-2.4); PROTEIN TOTAL,TP 5.9 g/dl (6.4-8.2)
[2024-11-28] MEDS: Diclofenac Sodium 1% Gel 100 GM Tube TOP PRN (06:43)
[2024-11-28] MEDS: Metoprolol Succinate 50 MG Tab.ER PO SCH (08:08)
[2024-11-28] MEDS: Magnesium Oxide 400 MG Tab PO SCH (08:08)
[2024-11-28 08:11] VITALS: BP 128/57; PULSE 110
[2024-11-28] MEDS ORDERED: Levofloxacin/Dextrose 5%-Water 500 MG in Premix Bag 1 BAG IV SCH (17:00)
[2024-11-28] MEDS ORDERED: Levofloxacin 500 MG Tab PO SCH (17:00)
[2024-11-30 04:47] LABS: INTACT PTH 40 pg/mL (15-65)
== END 2024-11-28 11:15 | disposition home or self-care (01) | DRG 690 ==
LOC: JD.ED 14:10 → JD.MS 18:33 → JD.ICU 18:34 → JD.MS 11-27 17:28
PROVIDERS: ADMIT Family Medicine; ATTEND Family Medicine
DX: N39.0 Urinary tract infection, site not specified (principal); M25.551 Pain in right hip; N30.00 Acute cystitis without hematuria; I10 Essential (primary) hypertension; N17.9 Acute kidney failure, unspecified; N18.4 Chronic kidney disease, stage 4 (severe); E11.9 Type 2 diabetes mellitus without complications; E83.42 Hypomagnesemia; E83.51 Hypocalcemia; H40.9 Unspecified glaucoma; E78.00 Pure hypercholesterolemia, unspecified; G47.30 Sleep apnea, unspecified; K21.9 Gastro-esophageal reflux disease without esophagitis; K44.9 Diaphragmatic hernia without obstruction or gangrene; M54.9 Dorsalgia, unspecified; E87.6 Hypokalemia; G89.29 Other chronic pain; I12.9 Hypertensive chronic kidney disease with stage 1 through stage 4 chronic kidney disease, or unspecified chronic kidney disease; B96.20 Unspecified Escherichia coli [E. coli] as the cause of diseases classified elsewhere; I44.0 Atrioventricular block, first degree; M19.90 Unspecified osteoarthritis, unspecified site; M06.9 Rheumatoid arthritis, unspecified; G43.909 Migraine, unspecified, not intractable, without status migrainosus; E11.22 Type 2 diabetes mellitus with diabetic chronic kidney disease; D64.9 Anemia, unspecified; E53.8 Deficiency of other specified B group vitamins; Z86.16 Personal history of COVID-19; Z98.49 Cataract extraction status, unspecified eye; Z90.49 Acquired absence of other specified parts of digestive tract; Z98.890 Other specified postprocedural states; Z90.710 Acquired absence of both cervix and uterus; Z96.649 Presence of unspecified artificial hip joint; Z79.84 Long term (current) use of oral hypoglycemic drugs; Z79.899 Other long term (current) drug therapy; Z79.82 Long term (current) use of aspirin; Z86.73 Personal history of transient ischemic attack (TIA), and cerebral infarction without residual deficits; Z88.8 Allergy status to other drugs, medicaments and biological substances; Z88.0 Allergy status to penicillin
CPT/HCPCS: 36415; 73502; 76705; 80053; 81001; 82306; 82550; 83690; 83735; 83970; 84100; 84443; 85025; 86140; 87086; 87088; 87186; 93005; 96365; 96375; 99285; C1758; J0612; J1956; J3475; 97116-GP; 97161-GP; 97530-GP; A9270-GY; J7030